=== PATIENT | female | born 1975 | race Caucasian/White ===

== ENCOUNTER 2017-05-15 11:46 | Emergency (ER) | payer OTHER ==
[~2017-05-15] VITALS: Ht 165.1 cm; Wt 88.0 kg
[~2017-05-15 11:46] MED LIST: ATV/1 PO; METO-217 PO; NXM/40 PO; SERT-234 PO
[2017-05-15 11:49] VITALS: TEMP 36.8; Ht 165.1 cm; Wt 88.0 kg
[2017-05-15] MEDS ORDERED: KETOROLAC TROMETHAMINE 60 MG/2 ML VIAL IM STA (12:10)
[2017-05-15] MEDS ORDERED: BACITRACIN OINT 15 GM TUBE ONE (13:16)
--- NOTE | 2017-05-15 13:25 | EMERGENCY ROOM VISIT NOTE ---
History First contact with patient: 12:06 Chief Complaint: BURN (MINOR) Stated Complaint: POSSIBLE BROKEN RIGHT HAND History of Present Illness The patient is a 41 year old female who presents to the Emergency Room with complaints of "burned hand ". The patient states that earlier today around 10: 30 AM she was at home, and went to reach out with her right hand to the coal stove door which was hot. She burned the palmar aspect of her right hand noting that this is her dominant hand. She rates the overall pain is a 10/10 has had nothing thus far for the pain. She believes her tetanus is up-to-date. She notes no decreased range of motion. Sensation intact. Review of Systems A complete 6-point Review of Systems was discussed with the patient, with pertinent positives and negatives listed in the History of Present Illness. All remaining Review of Systems questions can be considered negative unless otherwise specified. Past Medical/Surgical History Medical Problems: (1) Ankle pain (2) Anxiety (3) Arrhythmia (4) Chest pain (5) Depression (6) GERD (gastroesophageal reflux disease) (7) History of H pylori ulcer (8) Iron deficiency anemia (9) Palpitations (10) Rapid palpitations (11) V-tach Surgical Problems: (1) H/O colonoscopy (2) S/P D&C (status post dilation and curettage) (3) S/p EGD (4) S/P tubal ligation Family History Cardiac disorder GRANDFATHER FH: cancer FATHER (melanoma) FH: rheumatoid arthritis GRANDMOTHER Renal artery stenosis MOTHER Social History Smoking Status: Never Smoker Alcohol Use: none Occupation Status: employed Current/Historical Medications Scheduled Esomeprazole Magnesium (Nexium), 40 MG PO DAILY Lorazepam (Ativan), 1 MG PO DAILY Metoprolol Succinate (Toprol Xl), 50 MG PO DAILY Sertraline (Zoloft), 100 MG PO DAILY Physical Exam Vital Signs Date Time Temp Pulse Resp B/P (MAP) Pulse Ox O2 Delivery O2 Flow Rate FiO2 05/15/17 14:01 76 16 118/80 98 05/15/17 11:49 36.8 85 16 122/75 95 Room Air Physical Exam VITAL SIGNS - Vital signs and nursing notes were reviewed. Stable. GENERAL - 41-year-old female appearing her stated age who is in no acute distress. Communicates well with provider and answers questions appropriately. SKIN -there is erythema to the distal and lateral aspect of the patient's right palm. This erythema then has a centralized 3 cm in diameter, slightly white and bullous-like region with skin separation. No evidence of dermis penetration , or nerve compromise. Overall the integument is intact without bleeding. EXTREMITIES - No clubbing or peripheral cyanosis. No pretibial edema present. Full range of motion of the patient's right hand. She is neurovascularly intact in this region. Superficial second and first degree burn noted. +5/5 strength noted in UE/LE bilaterally. Medical Decision & Procedures Medications Administered Medications (Trade) Dose Ordered Sig/Alvina Route Start Time Stop Time Status Last Admin Dose Admin Ketorolac Tromethamine (Toradol Inj) 60 mg NOW STAT IM 05/15/17 12:10 05/15/17 12:11 DC 05/15/17 12:20 60 MG Medical Decision Patient was seen and evaluated as above in room D6. Review was performed of nursing notes and vital signs. After obtaining a thorough history and physical examination it was evident the patient was experiencing a first and superficial second-degree burn of the patient's right lateral distal palm. It is only partial-thickness and there is no evidence of deep involvement. This was cleansed with a sterile saline gauze, dried, and then bacitracin and Xeroform dressing was applied. Patient was provided IM Toradol for pain. She notes numerous allergies to pain medication therefore this was chosen. I did discuss with her outpatient p.o. pain medication but unfortunately due to her morphine allergy providing anaphylaxis she notes that she will use ibuprofen. I believe this is reasonable. She is to follow with her family doctor regarding her burn here today and is to either return here in 24-48 hours for recheck or her family doctor's office. Extensive discussion was had regarding management. The patient was educated upon management, had questions answered prior to discharge, and was discharged home in good condition. Case was discussed with the attending physician. In the evaluation and treatment of this patient the following differential diagnoses were entertained: First-degree, second-degree, third-degree burn, cellulitis, fracture, dislocation, among others. Impression Primary Impression: Burn injury Departure Information Dispostion Home / Self-Care Condition GOOD Referrals Carter Sena D.O. (PCP) Patient Instructions My [facility] Additional Instructions You have been treated in the Emergency Department today for a burn on your right hand. You have been given bacitracin ointment. This is an antibiotic ointment that will help to prevent the development of an infection at the site of your burn. After you have cleaned the burn site with soap and water and dried the area thoroughly, you should apply a layer of the ointment to the site of the burn with clean gauze or a clean tongue depressor. You should apply a dressing over the site of the burn to keep it clean from contamination. It is recommended to clean the hand, apply the antibiotic ointment, then applied a yellow gauze, and the white gauze, and then wrap the hand. Do this once daily for at least 5-7 days per Look for signs of infection of the wound including: increased pain, swelling, foul discharge, streaking, or increased temperature. If any of these are noticed you should return to the Emergency Department for further assessment and treatment. For pain control, you can use the following [id number] medicines: - Regular strength (325mg/tab) Tylenol (acetaminophen) 2 tabs every 4-6 hours as needed. Do not exceed 12 tablets in a 24 hour period. Avoid taking more than 3 grams (3000 mg) of Tylenol per day. This includes any other sources of acetaminophen you may take on a regular basis. - Regular strength (200 mg/tab) Advil (ibuprofen) 1-2 tabs every 4-6 hours as needed. Do not exceed a dose of 3200 mg per day. You should return to the Emergency Department in 2 days for a recheck of your burn or your family doctor. Please call the family doctor first thing tomorrow morning to schedule follow-up. This is essential to ensure proper wound healing. Return to the emergency department if your symptoms worsen despite treatment course outlined above.
[2017-05-15 14:01] VITALS: BP 118/80; PULSE 76; O2SAT 98
== END 2017-05-15 14:01 | disposition home or self-care (01) ==
LOC: C.EDB 11:47 → C.EDD 14:01
DX: T23.051A Burn of unspecified degree of right palm, initial encounter (principal); X16.XXXA Contact with hot heating appliances, radiators and pipes, initial encounter; Z79.899 Other long term (current) drug therapy; F41.9 Anxiety disorder, unspecified

== ENCOUNTER 2017-05-17 11:47 | Emergency (ER) | payer OTHER ==
[~2017-05-17] VITALS: Ht 165.1 cm; Wt 88.5 kg
[2017-05-17 11:49] VITALS: TEMP 36.6; Ht 165.1 cm; Wt 88.5 kg
[2017-05-17 12:36] VITALS: BP 118/77; PULSE 78; O2SAT 99
--- NOTE | 2017-05-18 06:27 | EMERGENCY ROOM VISIT NOTE ---
ED Visit Note First contact with patient: 12:06 CHIEF COMPLAINT: Thermal burn recheck. HISTORY OF PRESENT ILLNESS: Ms. Melgoza is a 41-year-old white female who ambulates into the ED requesting a wound recheck for a thermal burn she sustained to the right hand. Historically patient reports 2 days ago she accidentally burned her hand on a coal stove at home. She continues to have pain in the area of the burn but also in the webspace between the thumb and index finger on the right hand. She rates this discomfort 5/10. Her pain worsens with abduction of the thumb and palpation. She does feel like the burn is healing well and she has not seen any signs of infection. PHYSICAL EXAM: Vital Signs: Date Time Temp Pulse Resp B/P (MAP) Pulse Ox O2 Delivery O2 Flow Rate FiO2 05/17/17 12:36 78 18 118/77 99 05/17/17 11:49 36.6 86 20 112/76 97 Room Air General: 41-year-old white female in mild distress, nontoxic-appearing, afebrile and hemodynamically stable. Right Hand: Shows a blister formation from her thermal burn over the palmar aspect of the hand in the area of the second MCP joint. There are no signs of infection in this area. There is mild erythema in the webspace between the thumb and index finger without any blister formation. This is mildly tender to palpation I am once again there are no signs of infection. Throughout the hand the skin was warm and pink and capillary refill is brisk. She is able to distinguish light sensations to all dermatomes. She had also had full range of motion in flexion and extension of the first and second MCP joints and flexion and extension of the interphalangeal joints. ED COURSE: Patient is assessed as noted above. Patient's medication list was reviewed. Patient was offered pain medication and refused. A clean dressing was placed on the patient's wound with Bactrim. Patient was educated about today's findings and instructed on her treatment plan ; she verbalized understanding and agreement with this plan. DISPOSITION: Patient discharged home in stable condition. CLINICAL IMPRESSION: Burn recheck. PLAN: Comfort measures, wound care and signs of infection were discussed with the patient. Patient was encouraged to follow-up with PCP or return to the ED for any signs of infection or any new/concerning symptoms.
== END 2017-05-17 12:37 | disposition home or self-care (01) ==
LOC: C.EDB 11:49 → C.EDD 12:37
DX: Z09 Encounter for follow-up examination after completed treatment for conditions other than malignant neoplasm (principal); T23.0 Burn of unspecified degree of wrist and hand; X16.XXXD Contact with hot heating appliances, radiators and pipes, subsequent encounter

== ENCOUNTER 2019-12-07 02:29 | Inpatient (IN) ==
[2019-12-07] MEDS ORDERED: fentaNYL citrate 100 MCG/2 ML VIAL IV STA ×2 (02:41→04:12)
[2019-12-07] MEDS ORDERED: SODIUM CHLORIDE 0.9% 1000ML 1,000 ML IV ONE (02:41)
[2019-12-07] MEDS ORDERED: ONDANSETRON INJ 2 MG/ML 2 ML VIAL IV STA (02:41)
--- NOTE | 2019-12-07 02:45 | Emergency Department Note ---
History of Present Illness General Chief complaint: Abdominal Pain Stated complaint: GALLSTONES, ABD PAIN Time Seen by Provider: 12/07/19 02:36 History of Present Illness Maximum Pain Intensity: 10 This 44-year-old presents to the ER complaining of right upper quadrant pain Location: Right upper quadrant Quality: Painful Severity: Moderate Duration: 2 days Timing: Started 2 days ago Context: Patient was concerned and came in Modifying factors: better with nothing; worse with activity Patient had outpatient testing to the [employer] system. She does not have the results. She was seen at [facility] earlier this week and was told she has issues with her gallbladder. Patient denies chest pain, dyspnea, fevers, flulike illness. Patient had stuffed peppers for dinner. Home Medications Home Medications Medication Instructions Recorded Confirmed Type diphenhydramine HCl 50 mg PO TID PRN #30 cap 06/27/19 12/07/19 Rx hydrocortisone [Cortizone-10] 1 appln TOP BID PRN #28 gm 06/27/19 12/07/19 Rx lorazepam 1 mg PO DAILY 06/27/19 12/07/19 History metoprolol succinate 50 mg PO DAILY 06/27/19 12/07/19 History sertraline 100 mg PO DAILY 06/27/19 12/07/19 History pantoprazole 40 mg PO DAILY 12/07/19 12/07/19 History Allergies Allergy/AdvReac Type Severity Reaction Status Date / Time morphine Allergy Severe ANAPHYLAXIS Verified 12/07/19 03:02 shellfish derived Allergy Severe ANAPHYLAXIS Verified 12/07/19 03:02 nitroglycerin AdvReac Mild HEADACHE Verified 12/07/19 03:02 Fish Allergy Severe ALL SEAFOOD Uncoded 12/07/19 03:02 Unclassified Drugs Allergy Mild EKG Uncoded 12/07/19 03:02 ELECTRODES - RASH Past Med/Surg History Medical History (Updated 12/07/19 @ 04:23 by Dee Clifford PA-C) GERD (gastroesophageal reflux disease) Iron deficiency anemia Surgical History H/O colonoscopy "09/16/14- normal" S/P D&C (status post dilation and curettage) S/P tubal ligation Social History Smoking Status: Never smoker Preferred Language: Guatemalan Feels Safe at Home: Yes Review of Systems A total of 10 systems reviewed and were otherwise negative Physical Exam Vital Signs Vital Signs - 24 hr 12/07/19 02:32 12/07/19 02:55 12/07/19 03:04 Temperature 36.5 C Temperature Source Oral Pulse Rate 84 Pulse Rate [Apical] 83 Respiratory Rate 18 18 Respiratory Depth Normal Blood Pressure 130/88 Blood Pressure [Left Arm] 118/80 Blood Pressure Mean 102 Blood Pressure Mean [Left Arm] 92 Pulse Oximetry 100 98 95 Oxygen Delivery Method Room Air Room Air Room Air Sepsis Recent Fever Within 48 Hours No Sepsis New/Unexplained Change in Mental Status N/A Sepsis Action Taken by Nursing No Action Required 12/07/19 04:00 Temperature Temperature Source Pulse Rate Pulse Rate [Apical] 89 Respiratory Rate 13 Respiratory Depth Normal Blood Pressure Blood Pressure [Left Arm] 114/72 Blood Pressure Mean Blood Pressure Mean [Left Arm] 86 Pulse Oximetry 99 Oxygen Delivery Method Room Air Sepsis Recent Fever Within 48 Hours Sepsis New/Unexplained Change in Mental Status Sepsis Action Taken by Nursing VITALS: Vitals are noted on the nurse's note and reviewed by myself. Vital signs stable. GENERAL: Pleasant female who appears in pain, in no acute distress, nondiaphoretic, well-developed well-nourished. SKIN: Capillary reflex less than 2 seconds. HEENT: Normocephalic. PERRLA. EOMI. Nares patent. Mucous membranes moist. Neck is supple without nuchal rigidity. HEART: Regular rate and rhythm without murmurs gallops or rubs. LUNGS: Clear to auscultation bilaterally without wheezes, rales or rhonchi. No retractions or accessory muscle use. ABDOMEN: Positive bowel sounds x 4. Normal tympanic percussion. Soft, tender to palpation right upper quadrant, without masses or organomegaly. No guarding or rebound tenderness. No CVA tenderness MUSCULOSKELETAL: No gross musculoskeletal defects. NEURO: Patient was alert and oriented to person place and time. No focal neurological deficits. Course Administered Medications Discontinued Medications Fentanyl Citrate (Fentanyl Citrate 100 Mcg/2 Ml Vial) 75 mcg IV NOW STA Stop: 12/07/19 02:42 Last Admin: 12/07/19 02:52 Dose: 75 mcg Documented by: [id number] Fentanyl Citrate (Fentanyl Citrate 100 Mcg/2 Ml Vial) 75 mcg IV NOW STA Stop: 12/07/19 04:13 Last Admin: 12/07/19 04:18 Dose: 75 mcg Documented by: [id number] Sodium Chloride (Nss 1000ml) 1,000 mls @ 999 mls/hr IV .Q1H1M ONE Stop: 12/07/19 03:41 Last Infusion: 12/07/19 04:00 Dose: 0 mls/hr Documented by: [id number] Admin: 12/07/19 02:51 Dose: 999 mls/hr Documented by: [id number] Ondansetron HCl (Ondansetron Inj 2 Mg/Ml 2 Ml Vial) 4 mg IV NOW STA Stop: 12/07/19 02:42 Last Admin: 12/07/19 02:51 Dose: 4 mg Documented by: [id number] Medical Decision Making Medical Records Attestation: I reviewed the patient's medical records. Home Medications Current Medication List: was personally reviewed by me Laboratory Data Attestation: I reviewed the patient's lab results. Result diagrams: 12/07/19 02:55 12/07/19 02:55 Lab Results 12/07/19 12/07/19 12/07/19 Range/Units 02:55 02:55 02:55 WBC 6.17 (4.8-10.8) K/uL RBC 4.11 L (4.2-5.4) M/uL Hgb 10.4 L (12.0-16.0) g/dL Hct 32.7 L (37-47) % MCV 79.6 L (80-100) fL MCH 25.3 (25-34) pg MCHC 31.8 L (32-36) g/dL RDW Std Deviation 43.7 (36.4-46.3) fL RDW Coeff of Pina 15.0 H (11.5-14.5) % Plt Count 193 (130-400) K/uL MPV 12.1 H (7.4-10.4) fL Immature Gran % (Auto) 0.3 % Neut % (Auto) 61.8 % Lymph % (Auto) 28.0 % [place] % (Auto) 7.8 % Eos % (Auto) 1.9 % Baso % (Auto) 0.2 % Neut # (Auto) 3.81 (1.4-6.5) K/uL Lymph # (Auto) 1.73 (1.2-3.4) K/uL [place] # (Auto) 0.48 (0.11-0.59) K/uL Eos # (Auto) 0.12 (0-0.5) K/uL Baso # (Auto) 0.01 (0-0.2) K/uL Immature Gran # (Auto) 0.02 (0.00-0.02) K/uL Sodium 137 (136-145) mmol/L Potassium 4.0 (3.5-5.1) mmol/L Chloride 107 (98-107) mmol/L Carbon Dioxide 27 (21-32) mmol/L Anion Gap 3.0 (3-11) BUN 15 (7-18) mg/dl Creatinine 0.84 (0.6-1.2) mg/dl Est Cr Clr Drug Dosing 92.1 ml/min Est GFR ( Amer) 97.3 Est GFR (Non-Af Amer) 83.9 BUN/Creatinine Ratio 17.4 (10-20) Glucose 92 (70-99) mg/dl Calcium 8.9 (8.5-10.1) mg/dl Total Bilirubin 0.2 (0.2-1) mg/dl AST 37 (15-37) U/L ALT 49 (12-78) U/L Alkaline Phosphatase 100 (45-117) U/L Total Protein 7.5 (6.4-8.2) gm/dl Albumin 3.5 (3.4-5.0) gm/dl Globulin 4.0 (2.5-4.0) gm/dl Albumin/Globulin Ratio 0.9 (0.9-2) Lipase 369 (73-393) U/L HCG, Qual Negative (Negative) Urine Color Urine Appearance (Clear) Urine pH (4.5-7.5) Ur Specific [place] (1.000-1.030) Urine Protein (Negative) Urine Glucose (UA) (Negative) Urine Ketones (Negative) Urine Blood (Negative) Urine Nitrite (Negative) Urine Bilirubin (Negative) Urine Urobilinogen (Negative) Ur Leukocyte Esterase (Negative) 12/07/19 Range/Units 04:05 WBC (4.8-10.8) K/uL RBC (4.2-5.4) M/uL Hgb (12.0-16.0) g/dL Hct (37-47) % MCV (80-100) fL MCH (25-34) pg MCHC (32-36) g/dL RDW Std Deviation (36.4-46.3) fL RDW Coeff of Pina (11.5-14.5) % Plt Count (130-400) K/uL MPV (7.4-10.4) fL Immature Gran % (Auto) % Neut % (Auto) % Lymph % (Auto) % [place] % (Auto) % Eos % (Auto) % Baso % (Auto) % Neut # (Auto) (1.4-6.5) K/uL Lymph # (Auto) (1.2-3.4) K/uL [place] # (Auto) (0.11-0.59) K/uL Eos # (Auto) (0-0.5) K/uL Baso # (Auto) (0-0.2) K/uL Immature Gran # (Auto) (0.00-0.02) K/uL Sodium (136-145) mmol/L Potassium (3.5-5.1) mmol/L Chloride (98-107) mmol/L Carbon Dioxide (21-32) mmol/L Anion Gap (3-11) BUN (7-18) mg/dl Creatinine (0.6-1.2) mg/dl Est Cr Clr Drug Dosing ml/min Est GFR ( Amer) Est GFR (Non-Af Amer) BUN/Creatinine Ratio (10-20) Glucose (70-99) mg/dl Calcium (8.5-10.1) mg/dl Total Bilirubin (0.2-1) mg/dl AST (15-37) U/L ALT (12-78) U/L Alkaline Phosphatase (45-117) U/L Total Protein (6.4-8.2) gm/dl Albumin (3.4-5.0) gm/dl Globulin (2.5-4.0) gm/dl Albumin/Globulin Ratio (0.9-2) Lipase (73-393) U/L HCG, Qual (Negative) Urine Color Yellow Urine Appearance Clear (Clear) Urine pH 6.0 (4.5-7.5) Ur Specific [place] 1.009 (1.000-1.030) Urine Protein Negative (Negative) Urine Glucose (UA) Negative (Negative) Urine Ketones Negative (Negative) Urine Blood Negative (Negative) Urine Nitrite Negative (Negative) Urine Bilirubin Negative (Negative) Urine Urobilinogen Negative (Negative) Ur Leukocyte Esterase Negative (Negative) Imaging Data Attestation: I personally reviewed and interpreted this imaging study as follows: MDM Narrative Prior records/ancillary studies reviewed. Triage Nursing notes reviewed. Additional history obtained from family. The patient's history was concerning for abdominal pain. Differential diagnosis: Etiologies such as appendicitis, diverticulitis, PUD, biliary pathology, UTI, pancreatitis, obstruction, mesenteric ischemia, aortic pathology, infections, inflammatory bowel disease, renal colic, as well as others were entertained. Physical examination findings: As above. ER treatment provided: An order was placed for continuous cardiac monitoring. The monitor shows a rate of 60-100 with a sinus rhythm. Fentanyl, Zofran, IV fluids On reassessment the patient felt better. Diagnostics interpreted by me: The labs revealed stable anemia per chart review. Negative hCG. Normal LFTs Imaging studies: US GALLBLADDER: Exam limited due to gas artifact in the bowel. Partial obscuration of the tail of the pancreas, remainder of the visualized pancreas within normal limits. Liver measures 18 cm with a diffuse fatty infiltration otherwise unremarkable. Gallbladder is normally distended with multiple tiny stones. Gallbladder wall measures 2 mm. Negative Myers sign. Normal common bile duct measuring 4 mm. Normal right kidney measuring 12.2 cm. No hydronephrosis. No free fluid. Radiologist: Jessica Westbrook MD I did obtain the outpatient records from [facility] and patient in abdominal MRI that showed a right ovarian cyst. Consultation: A consultation was placed with the hospitalist, Dr. Alexander. The case was discussed and diagnostics were reviewed. The patient was evaluated in the ER for further treatment. Exam and history seem consistent with biliary colic with intractable pain. Patient received a few rounds of pain meds. Medicine was consulted. She will be evaluated for possible admission. By the evaluation outlined above emergent etiologies such as appendicitis, diverticulitis, pancreatitis, obstruction, mesenteric ischemia, aortic pathology, inflammatory bowel disease, renal colic, as well as others were deemed relatively unlikely. The pt informed about the findings as listed above. All questions were answered and pleased with the treatment. The chart was completed utilizing [employer] voice recognition software. Grammatical errors, random word insertions, pronoun errors, and incomplete sentences are an occassional consequence of this system due to software limitations, ambient noise, and hardware issues. Any formal questions or concerns about the content, text, or information contained within the body of this dictation should be directly addressed to the physician clinical education assistant for clarification. Impression & Plan Biliary colic, Intractable abdominal pain Discharge Plan Visit Data Chief Complaint: Abdominal Pain Stated Complaint: GALLSTONES, ABD PAIN ED Provider: Monique Sheffield ED Midlevel Provider: Dee Clifford Discharge Problem: Biliary colic, Intractable abdominal pain Patient Disposition: Admitted As Inpatient Condition: Good Forms Stand Alone Forms: Total Attorneys Prescriptions Prescriptions: No Action metoprolol succinate 50 mg tablet extended release 24 hr 50 mg PO DAILY RF: 0 sertraline 100 mg tablet 100 mg PO DAILY RF: 0 lorazepam 1 mg tablet 1 mg PO DAILY RF: 0 diphenhydramine HCl 50 mg capsule 50 mg PO TID PRN (Reason: itching) Qty: 30 RF: 0 hydrocortisone [Cortizone-10] 1 % cream 1 appln TOP BID PRN (Reason: itching) Qty: 28 RF: 2 pantoprazole 40 mg tablet,delayed release (DR/EC) 40 mg PO DAILY RF: 0 Referrals Referrals: Carter Sena DO [Primary Care Provider] -
[2019-12-07 03:03] LABS: Basophils # (auto) 0.01 K/uL (0-0.2); Basophils % (auto) 0.2 %; Eosinophils # (auto) 0.12 K/uL (0-0.5); Eosinophils % (auto) 1.9 %; Hematocrit (blood only) 32.7 % (37-47); Hemoglobin 10.4 g/dL (12.0-16.0); Immature Granulocytes # (auto) 0.02 K/uL (0.00-0.02); Immature Granulocytes % (auto) 0.3 %; Lymphocytes # (auto) 1.73 K/uL (1.2-3.4); Mean Corpuscular Hemoglobin 25.3 pg (25-34); Mean Corpuscular Hgb Conc 31.8 g/dL (32-36); Mean Corpuscular Volume 79.6 fL (80-100); Mean Platelet Volume 12.1 fL (7.4-10.4); Monocytes # (auto) 0.48 K/uL (0.11-0.59); Monocytes % (auto) 7.8 %; Neutrophils # (auto) 3.81 K/uL (1.4-6.5); Neutrophils % (auto) 61.8 %; Platelet Count 193 K/uL (130-400); RDW Standard Deviation 43.7 fL (36.4-46.3); Red Blood Count 4.11 M/uL (4.2-5.4); White Blood Count 6.17 K/uL (4.8-10.8)
[2019-12-07 03:20] LABS: Albumin Level 3.5 gm/dl (3.4-5.0); BUN Creatinine Ratio 17.4 (10-20); Calcium 8.9 mg/dl (8.5-10.1); Creatinine Clr Calc Pharmacy 92.1 ml/min; Est GFR (African American) 97.3; Est GFR (Non-African American) 83.9
[2019-12-07 03:23] LABS: Albumin Globulin Ratio 0.9 (0.9-2); Bilirubin,Total 0.2 mg/dl (0.2-1); Total Protein 7.5 gm/dl (6.4-8.2)
[2019-12-07 03:34] LABS: Pregnancy Test, Serum Negative (Negative)
[2019-12-07 04:20] LABS: Appearance Urine Clear (Clear); Bilirubin Urine Negative (Negative); Blood Urine Negative (Negative); Color Urine Yellow; Glucose Urine UA Negative (Negative); Ketones Urine Negative (Negative); Leukocyte Esterase Urine Negative (Negative); Nitrite Urine Negative (Negative); Protein Urine Negative (Negative); Specific Gravity Urine 1.009 (1.000-1.030); Urobilinogen Urine Negative (Negative)
[2019-12-07] MEDS ORDERED: HYDROmorphone INJ 0.5 MG/0.5 ML SYR ONE (05:33)
[2019-12-07] MEDS ORDERED: ACETAMINOPHEN 325 MG TAB PO PRN ×2 (06:09→18:32)
[2019-12-07] MEDS ORDERED: D5W AND NSS 1,000 ML IV SCH (06:09)
[2019-12-07] MEDS ORDERED: HYDROmorphone INJ 0.5 MG/0.5 ML SYR IV PRN (06:09)
[2019-12-07] MEDS ORDERED: diphenhydrAMINE Capsule 25 MG CAP PO PRN (06:15)
[2019-12-07] MEDS ORDERED: HYDROCORTISONE 1% CRM 30 GM TUBE EXT PRN (06:16)
--- NOTE | 2019-12-07 06:31 | History and Physical Report ---
DATE OF ADMISSION: 12/07/2019 CHIEF COMPLAINT: Abdominal pain. HISTORY OF PRESENT ILLNESS: This is a 44-year-old female with past medical history significant for GERD, history of iron deficiency anemia, anxiety, depression, history of tachyarrhythmia, left ovarian cyst, who presents with abdominal pain. The patient states the abdominal pain has been going on for 1 week on and off. She was in [facility] on Tuesday and she got a CAT scan done and it showed gallstones and she saw her PCP and was referred to GI. Was seen by GI and ordered MRI scan yesterday. She does not know the results, but as per the Epic, results show nonvisualization of the gallbladder likely contracted, mild biliary ductal dilatation, which gradually tapers distally, no choledocholithiasis. But the patient says pain is not getting better, she now has right upper quadrant pain not associated with any food intake, it has become constant now associated with some nausea, which prompted her to come to the ER. Here a gallbladder ultrasound was done which showed some small gallstones. Even after pain medication, still has significant pain, so we are consulted for admission and further management. The patient's hemodynamics are stable. She is having a headache constant. Denies any blurred vision. No earache, no runny nose, no sore throat, no loss of sense of smell or taste. No cough, no shortness of breath, no chest pain. She is somewhat constipated. No dizziness. No blood in stool or black stool. Normal bladder movements. No hematuria. No burning micturition. No rash. ALLERGIES: MORPHINE, SHELLFISH, NITROGLYCERIN, ALL SEAFOOD. PAST MEDICAL HISTORY: As mentioned above. PAST SURGICAL HISTORY: Colonoscopy, EGDs, ligation of the oviducts, D and C. MEDICATIONS: As per the patient, the patient is on Benadryl 50 mg p.o. t.i.d. p.r.n., hydrocortisone application topically b.i.d. p.r.n., lorazepam 1 mg p.o. daily, metoprolol succinate 50 mg p.o. daily, Protonix 40 mg p.o. daily, Zoloft 100 mg p.o. daily. FAMILY HISTORY: Significant for father had melanoma, paternal grandfather had heart disorder, mother had renal history, maternal grandmother had rheumatoid arthritis. SOCIAL HISTORY: . No smoking, no alcohol, no drug use. REVIEW OF SYSTEMS: As per HPI. Rest of the review of systems negative. PHYSICAL EXAMINATION: GENERAL: The patient is of moderate build, not in acute distress. VITAL SIGNS: Temperature 36.5, pulse 89, respiratory rate 18, blood pressure 114/72, oxygen 99% on room air. HEENT: Pupils are equal, round, and reactive to light. Oral mucosa moist. NECK: No JVD, no neck masses. CARDIOVASCULAR: S1, S2 heard, regular rate and rhythm, no murmur, no gallop. RESPIRATORY SYSTEM: Normal AP diameter. No accessory muscle use. No wheezing, no crackles. ABDOMEN: Soft, bowel sounds present. Right upper quadrant tenderness present. Mild guarding, no rigidity. No distention. CENTRAL NERVOUS SYSTEM: Cranial nerves II-XII grossly intact. Nonfocal. EXTREMITIES: No edema, no erythema. LABORATORY DATA: WBC 6.1, hemoglobin 10.4, hematocrit 32.7, MCV 79.6, platelets 193. Sodium 137, potassium 4, chloride 107, bicarbonate 27, BUN 15, creatinine 0.8, serum glucose 92, calcium 8.9, total bilirubin 0.2, AST 37, ALT 49, alkaline phosphatase 100. Lipase 369. HCG qualitative negative. Urinalysis negative. IMAGING DATA: Gallbladder ultrasound, preliminary report shows gallbladder is normally distended with multiple tiny stones. Gallbladder wall measures 2 mm. ASSESSMENT AND PLAN: This is a 44-year-old female who presents with ongoing right upper quadrant abdominal pain. 1. Right upper quadrant abdominal pain. Ultrasound showed gall stones. She recently had MRI scan as outpatient by GI, which was done yesterday which shows nonvisualization of the gallbladder, likely contracted, mild biliary ductal dilatation, which gradually tapers distally. No choledocholithiasis. Presents with ongoing pain could be biliary colic. We will consult GI as she was recently seen by GI. We will also consult surgery and also will get a HIDA scan. We will keep her n.p.o., IV fluids, IV Dilaudid p.r.n. Continue her home Protonix p.o. and monitor in the medical floor. 2. History of tachyarrhythmias, on metoprolol, which she will continue. 3. History of anxiety and depression. Continue Zoloft and Ativan. 4. History of iron deficiency anemia. Hemoglobin is 10.6, seems to be same. Needs followup with the PCP. We will order stool for Hemoccult. 5. Deep venous thrombosis prophylaxis, sequential compression devices. DISPOSITION: Closely monitor in the medical floor. Expect to discharge home and follow with family doctor. Level 1 full code. MTDD
[2019-12-07] MEDS ORDERED: KETOROLAC 30 MG/ML VIAL IV ONE (06:55)
--- NOTE | 2019-12-07 07:08 | Ultrasound Report ---
ABDOMINAL ULTRASOUND, RIGHT UPPER QUADRANT HISTORY: Right upper quadrant pain.. COMPARISON: Abdominal ultrasound 11/11/2014. FINDINGS: Pancreas: The pancreatic tail is obscured by overlying bowel gas. The remaining portions of the pancr eas are within normal limits. Liver: The liver is echogenic consistent with fatty change. 18 cm in length. Gallbladder: No gallbladder wall thickening. A few tiny gallstones. Negative sonographic Myers sign. CBD: 4 mm. Right kidney: No hydronephrosis. IMPRESSION: 1. A few tiny gallstones. No gallbladder wall thickening. 2. Hepatic steatosis. ACT 112: Negative or not required by law. Electronically signed by: Jaspal Benoit M.D. 12/07/2019 7:07 AM
[2019-12-07] MEDS: LACTATED RINGER'S 1,000 ML IV SCH ×2 (09:12→18:56)
[2019-12-07] MEDS: LORazepam 1 MG TAB PO SCH (09:14)
[2019-12-07] MEDS: METOPROLOL SUCC 50MG EXT REL TAB PO SCH (09:14)
[2019-12-07] MEDS: PANTOprazole 40 MG TAB PO SCH (09:14)
[2019-12-07] MEDS: SERTRALINE HCL 100 MG TABLET PO SCH (09:15)
--- NOTE | 2019-12-07 09:15 | Hospitalist Progress Note ---
Date of Service December 07, 2019 Assessment & Plan (1) Gallstone: with Right Upper quadrant pain -As per History and Physical "This is a 44-year-old female with past medical history significant for GERD, history of iron deficiency anemia, anxiety, depression, history of tachyarrhythmia, left ovarian cyst, who presents with abdominal pain. The patient states the abdominal pain has been going on for 1 week on and off. She was in [facility] on Tuesday and she got a CAT scan done and it showed gallstones and she saw her PCP and was referred to GI. Was seen by GI and ordered MRI scan yesterday. She does not know the results, but as per the Epic, results show nonvisualization of the gallbladder likely contracted, mild biliary ductal dilatation, which gradually tapers distally, no choledocholithiasis. But the patient says pain is not getting better, she now has right upper quadrant pain not associated with any food intake, it has become constant now associated with some nausea, which prompted her to come to the ER. Here a gallbladder ultrasound was done which showed some small gallstones. -review of lab markers are not suggestive of choledocholithiasis but given continued symptoms, patient to get HIDA scan. At discretion of GI team whether ERCP will be performed on this hospital stay -GI service ordered pre-operative COVID 19 screening and upper endoscopy at this time -General surgery consult also requested by admitting hospitalist physician -patient currently NPO and on IV fluids, prn analgesics, prn anti-emetics, continue home dose protonics History of tachyarrhythmias -on metoprolol, continue. Anxiety and depression -Continue Zoloft and Ativan. History of iron deficiency anemia -Hemoglobin on presentation 10.6 appears baseline Deep venous thrombosis prophylaxis, sequential compression devices. Admission and Anticipated Discharge Date Admission Date: December 07, 2019 Subjective Patient not in acute distress. Has right quadrant tenderness the increases with palpation of the area. no shortness of breath. able to sit up for auscultation. no wheezing. on room air. IV fluids are running. patient denies chest pain or palpitations. no dizziness. no headache. denies other acute symptoms Review of Systems Review of Systems: All systems reviewed & are unremarkable except as noted in Subjective Physical Exam Constitutional: cooperative Eyes: PERRL, conjunctivae normal, anicteric sclerae EOM intact bilaterally ENMT: external ear and nose normal, oropharynx normal Neck: normal visual inspection Respiratory: normal respiratory effort, lungs clear to auscultation Cardiovascular: Rate/Rhythm: + bradycardic Gastrointestinal (Abdomen): Inspection/Auscultation: normal bowel sounds Percussion/Palpation: + abdomen tender (right upper quadrant tenderness) and abdomen soft Musculoskeletal: Head/Neck/Chest: normocephalic and head atraumatic Neurologic: PERRL, EOMI, accommodation nl, no face palsy, no dysarthria CN's II-XI intact bilaterally Psychiatric: A+Ox3, euthymic affect Results & Data Results & Data ([facility]) Vital Signs (Past 12 Hours) Vital Signs Temp Pulse Pulse Pulse Pulse Resp BP 12/07/19 09:06 57 L 12/07/19 06:04 36.7 C 81 16 12/07/19 06:00 36.7 C 81 16 12/07/19 05:30 86 13 102/40 L 12/07/19 04:00 89 13 12/07/19 03:04 83 18 12/07/19 02:55 12/07/19 02:32 36.5 C 84 18 130/88 BP BP Pulse Ox 12/07/19 09:06 106/66 12/07/19 06:04 107/67 97 12/07/19 06:00 107/67 97 12/07/19 05:30 97 12/07/19 04:00 114/72 99 12/07/19 03:04 118/80 95 12/07/19 02:55 98 12/07/19 02:32 100
--- NOTE | 2019-12-07 09:17 | Gastrointestinal Consultation ---
Date of Consultation December 07, 2019 Assessment & Plan (1) Gallstone: (2) Iron deficiency anemia: (3) Intractable abdominal pain: Pt is a 44 yo female w RUQ abd pain, radiating to back not related to eating. She endorses 20lbs weight loss in last 2 months. Previous labs/diagnostic studies showed mildly elevated ALT, and MRCP evidence of mild biliary dilation w distal tapering and gallstones w/o signs of cholecystitis. U/S on admission however showed normal CBD at 4mm. + Excedrin uses for HAs ? PUD vs gastritis - HIDA scheduled for 1p today - Keep NPO - IVF support - Continue Protonix 40mg daily - Plan for EGD/EUS evaluation in OR by Dr. Braga today - Hx of iron deficiency anemia 2/2 menorrhagia. Consider repeating iron profile studies and eventually f/u in outpt setting w PCP or Heme/Onc to continue iron infusions. Should also repeat colonoscopy to r/o sources of LGI bleed/occult lesion Supervising Physician Co-Signing Physician Notes I performed a history and physical examination of the patient today, including specifically on physical exam - soft abdomen. I have discussed the patient's management with the advanced practitioner. Please refer to the nurse practitioner's note for the documented findings and plan of care. EGD/EUS today History of Present Illness Reason for Consultation: Abdominal pain Requesting Physician: Dr. Willard Gonzalez Attending Physician: Dr. Gavi Braga History of Present Illness Pt is a 44 yo female who presented yesterday w c/o RUQ abd pain. She was just seen at GI clinic by CHRISTIAN Izquierdo for this complaint. In last few months she's been having intermittent sharp RUQ abd pain, radiating to back. Pain not related to eating. Denies associated jaundice, fever, chills, n/v, changes in bowel habits. She also reports in 20lbs weight loss in last 2 months. Her ALT was mildly up on outpt labs, lipase normal. Previous diagnostic studies obtained to workup RUQ pain U/S, CT abd/pelvis and most recently MRCP which showed gallstones w/o distension/inflammation. CBD mildly dilated and tapers gradually but w/o obvious choledocholithiasis on MRCP. U/S on admission yesterday however showed CBD normal at 4mm. She has hx of anemia as well suspected due to menorrhagia, and been treated in the past w IV iron infusions. Currently on PO iron supplements daily EGD/Colonoscopy 2017- normal upper exam, + diverticulosis. She did have hx of esophagitis in 2014. + Excedrin uses for migraine HAs, no ETOH, tobacco, marijuana products Maternal grandmother ? rectal ca. Allergies Allergy/AdvReac Type Severity Reaction Status Date / Time morphine Allergy Severe ANAPHYLAXIS Verified 12/07/19 03:02 shellfish derived Allergy Severe ANAPHYLAXIS Verified 12/07/19 03:02 nitroglycerin AdvReac Mild HEADACHE Verified 12/07/19 03:02 Fish Allergy Severe ALL SEAFOOD Uncoded 12/07/19 03:02 Unclassified Drugs Allergy Mild EKG Uncoded 12/07/19 03:02 ELECTRODES - RASH Home Medications Home Medications Medication Instructions Recorded Confirmed Type diphenhydramine HCl 50 mg PO TID PRN #30 cap 06/27/19 12/07/19 Rx hydrocortisone [Cortizone-10] 1 appln TOP BID PRN #28 gm 06/27/19 12/07/19 Rx lorazepam 1 mg PO DAILY 06/27/19 12/07/19 History metoprolol succinate 50 mg PO DAILY 06/27/19 12/07/19 History sertraline 100 mg PO DAILY 06/27/19 12/07/19 History pantoprazole 40 mg PO DAILY 12/07/19 12/07/19 History Patient History Medical History (Updated 12/07/19 @ 09:32 by Norma Hoskins PA-C) GERD (gastroesophageal reflux disease) Iron deficiency anemia Surgical History H/O colonoscopy "09/16/14- normal" S/P D&C (status post dilation and curettage) S/P tubal ligation Social History Smoking Status: Never smoker Hx Alcohol Use: Yes Alcohol type: wine Hx Substance Use: No Preferred Language: Chinese Communication Ability: Effective Beliefs That Will Affect Care: None Current Living Situation: Spouse and Family Other Information That Helps Us Care for You: No Feels Safe at Home: Yes Safety Concerns: Feels Safe At This Time Review of Systems Review of Systems: All systems reviewed & are unremarkable except as noted in HPI & below Physical Exam Constitutional: WD/WN, vitals as above well groomed, cooperative and comfortable Eyes: PERRL, conjunctivae normal, anicteric sclerae ENMT: external ear and nose normal, oropharynx normal Respiratory: normal respiratory effort, lungs clear to auscultation Cardiovascular: RRR, no murmur, no edema Gastrointestinal (Abdomen): Inspection/Auscultation: + hypoactive bowel sounds Percussion/Palpation: + abdomen tender (RUQ ) and abdomen soft Skin: no rashes, warm and dry no jaundice Neurologic: Motor/Sensory: no asterixis Psychiatric: A+Ox3, euthymic affect Lymphatic: no lymphedema Results & Data ([facility]) Vital Signs (Past 12 Hours) Vital Signs Temp Pulse Pulse Pulse Pulse Resp BP 12/07/19 09:06 57 L 12/07/19 06:04 36.7 C 81 16 12/07/19 06:00 36.7 C 81 16 12/07/19 05:30 86 13 102/40 L 12/07/19 04:00 89 13 12/07/19 03:04 83 18 12/07/19 02:55 12/07/19 02:32 36.5 C 84 18 130/88 BP BP Pulse Ox 12/07/19 09:06 106/66 12/07/19 06:04 107/67 97 12/07/19 06:00 107/67 97 12/07/19 05:30 97 12/07/19 04:00 114/72 99 12/07/19 03:04 118/80 95 12/07/19 02:55 98 12/07/19 02:32 100
--- NOTE | 2019-12-07 09:18 | Surgery Consultation ---
Date of Consultation December 07, 2019 Assessment & Plan (1) Gallstones: This is a 44y F with a PMH of anxiety/depression who presents to the [facility] ED on 12/07/19 with complaints of abdominal pain. Patient reports pain has been present over the past 2 weeks and is now constant RUQ pain that can get worse during "flares". She was evaluated by GI as an output and underwent an MRCP that revealed mild biliary ductal dilation which tapers distally. GI is following in house and recommended obtaining an EGD/EUS today. Patient is also scheduled for a HIDA scan this afternoon. Currently patient's WBC and LFTs are normal and there is no evidence of inflammation/cholecystitis on her imaging. We will gather more information with HIDA and EUS, but no plans for surgical intervention from our standpoint today. We will continue to follow along. as above. stopped to see pt who is not in her room/downstairs for GI procedure. will make rec's pending results of egd/eus. History of Present Illness Attending Physician: Willard Gonzalez MD History of Present Illness This is a 44y F with a PMH of anxiety/depression who presents to the [facility] ED on 12/07/19 with complaints of abdominal pain. Patient reports her abdominal pain started about 2 weeks ago, started in the lower abdomen that has now progressed to the RUQ and towards her back. She said she tried to ignore the pain and has taken Ibuprofen for relief. This past Tuesday after work she reports the pain became very severe in the RUQ and developed bad acid reflux. She went to [facility] ER where she was told she had gallstones and they sent her to her PCP and then to GI for further evaluation. She underwent an MRI which supposedly shows non visualization of the gallbladder,likely contracted, with mild biliary ductal dilation which tapers distally. After her MRI yesterday she said around 10pm she had another bout of severe pain and ultimately came to the ER for further evaluation. In the ER patient's WBC 6, patient afebrile, and LFTs unremarkable. She underwent a RUQ US revealing few tiny gallstones without gallbladder wall thickening. Patient reports that her pain has been constant over the past 2 weeks, but she develops these flares of severe pain that she rates >10/10. She states there is no relationship to food as she gave up eating greasy foods. She reported some loose stools yesterday, waves of feeling hot/cold, and + nausea. She denies vomiting, chest pain, shortness of breath, or true fevers. She has no prior abdominal surgical history. Allergies Allergy/AdvReac Type Severity Reaction Status Date / Time morphine Allergy Severe ANAPHYLAXIS Verified 12/07/19 03:02 shellfish derived Allergy Severe ANAPHYLAXIS Verified 12/07/19 03:02 nitroglycerin AdvReac Mild HEADACHE Verified 12/07/19 03:02 Fish Allergy Severe ALL SEAFOOD Uncoded 12/07/19 03:02 Unclassified Drugs Allergy Mild EKG Uncoded 12/07/19 03:02 ELECTRODES - RASH Home Medications Home Medications Medication Instructions Recorded Confirmed Type diphenhydramine HCl 50 mg PO TID PRN #30 cap 06/27/19 12/07/19 Rx hydrocortisone [Cortizone-10] 1 appln TOP BID PRN #28 gm 06/27/19 12/07/19 Rx lorazepam 1 mg PO DAILY 06/27/19 12/07/19 History metoprolol succinate 50 mg PO DAILY 06/27/19 12/07/19 History sertraline 100 mg PO DAILY 06/27/19 12/07/19 History pantoprazole 40 mg PO DAILY 12/07/19 12/07/19 History Patient History Medical History (Updated 12/07/19 @ 09:32 by Norma Hoskins PA-C) GERD (gastroesophageal reflux disease) Iron deficiency anemia Surgical History H/O colonoscopy "09/16/14- normal" S/P D&C (status post dilation and curettage) S/P tubal ligation Social History Smoking Status: Never smoker Hx Alcohol Use: Yes Alcohol type: wine Hx Substance Use: No Preferred Language: Angolan Communication Ability: Effective Beliefs That Will Affect Care: None Current Living Situation: Spouse and Family Other Information That Helps Us Care for You: No Feels Safe at Home: Yes Safety Concerns: Feels Safe At This Time Assistive Devices: None Review of Systems Constitutional: waves of feeling hot/cold Respiratory: no dyspnea Cardiovascular: no chest pain Gastrointestinal: + abdominal pain (RUQ), + heartburn, + nausea and + diarrhea/loose stools; no vomiting Physical Exam Physical Exam: awake/alert Respiratory: normal respiratory effort Gastrointestinal (Abdomen): Inspection/Auscultation: abdomen not distended Percussion/Palpation: + abdomen tender (some ttp to deep palpation in RUQ) and abdomen soft Results & Data ([facility]) Vital Signs (Past 12 Hours) Vital Signs Temp Pulse Pulse Pulse Pulse Resp BP 12/07/19 09:06 57 L 12/07/19 06:04 36.7 C 81 16 12/07/19 06:00 36.7 C 81 16 12/07/19 05:30 86 13 102/40 L 12/07/19 04:00 89 13 12/07/19 03:04 83 18 12/07/19 02:55 12/07/19 02:32 36.5 C 84 18 130/88 BP BP Pulse Ox 12/07/19 09:06 106/66 12/07/19 06:04 107/67 97 12/07/19 06:00 107/67 97 12/07/19 05:30 97 12/07/19 04:00 114/72 99 12/07/19 03:04 118/80 95 12/07/19 02:55 98 12/07/19 02:32 100 PG Care Time/CCT Total # of Minutes Spent Total Time Spent with Patient: Total time spent is greater than 50% in coordination of care (as documented) at patient's floor/unit and/or counseling patient: Coding Level of Care Code 38879 Inpt Consult Level 4 Diagnoses Gallstones K80.20
[2019-12-07] MEDS ORDERED: SODIUM CHLORIDE 0.9% IV STA (13:32)
[2019-12-07] MEDS ORDERED: SINCALIDE IV STA (13:32)
--- NOTE | 2019-12-07 15:08 | Nuclear Medicine Report ---
NUCLEAR HEPATOBILIARY SCAN WITH EJECTION FRACTION IMAGING CLINICAL HISTORY: Right upper quadrant abdominal pain. Cholelithiasis. COMPARISON STUDY: Abdominal ultrasound dated 12/07/2019. TECHNIQUE: Dynamic images of the liver and anterior abdomen were obtained every 5 minutes for a total of 60 minutes following the IV administration of 5.4mCi of technetium 99m Choletec. 1.74 mcg of si ncalide was then injected with additional images acquired every 5 minutes for 45 minutes to calculate the gallbladder ejection fraction. FINDINGS: The hepatobiliary scan shows prompt and homogeneous hepatic uptake. There is visualized act ivity within the intra and extrahepatic biliary tree at 5 minutes, and within the gallbladder at 10 minutes. There is normal biliary to bowel transit, with small bowel visualized by 45 minutes. On the sincalide imaging, the gallbladder ejection fraction was measured at 35%. IMPRESSION: 1. Unremarkable nuclear hepatobiliary scan. There is no scintigraphic evidence of cholecystitis. 2. The gallbladder ejection fraction measured 35% which is low-normal. ACT 112: Negative or not required by law. Electronically signed by: Jaylon Pena M.D. 12/07/2019 3:07 PM
--- NOTE | 2019-12-07 16:20 | History & Physical Bridge Note ---
Date of Service December 07, 2019 History & Physical Bridge Note I have examined the patient, reviewed the History & Physical and in the interval since the performance of the History & Physical I have noted the following changes of clinical significance: no changes noted EGD/EUS, I also consented the patient for ERCP if needed.
--- NOTE | 2019-12-07 16:22 | Anesthesiology Consultation ---
Date of Service December 07, 2019 Covid 19 negative today. Assessment & Plan (1) Encounter for pre-operative examination: Chart Review Chart Review: Acceptable Risk for Surgery and Patient NOT seen in Pre Admission Testing Consults Requested none History Surgery Operation Date: 12/07/19 13:35 Proposed Procedures p Endoscopic Ultrasonography, - Gavi Braga MD s Esophagogastroduodenoscopy - Gavi Braga MD Height/Weight Height: 5 ft 5 in Weight: 87.1 kg Allergies Allergy/AdvReac Type Severity Reaction Status Date / Time morphine Allergy Severe ANAPHYLAXIS Verified 12/07/19 03:02 shellfish derived Allergy Severe ANAPHYLAXIS Verified 12/07/19 03:02 nitroglycerin AdvReac Mild HEADACHE Verified 12/07/19 03:02 Fish Allergy Severe ALL SEAFOOD Uncoded 12/07/19 03:02 Unclassified Drugs Allergy Mild EKG Uncoded 12/07/19 03:02 ELECTRODES - RASH Medications Home Medications Medication Instructions Recorded Confirmed Last Taken diphenhydramine HCl 50 mg PO TID PRN #30 cap 06/27/19 12/07/19 Unknown hydrocortisone [Cortizone-10] 1 appln TOP BID PRN #28 gm 06/27/19 12/07/19 Unknown lorazepam 1 mg PO DAILY 06/27/19 12/07/19 12/06/19 metoprolol succinate 50 mg PO DAILY 06/27/19 12/07/19 12/06/19 sertraline 100 mg PO DAILY 06/27/19 12/07/19 12/06/19 pantoprazole 40 mg PO DAILY 12/07/19 12/07/19 12/06/19 Active Medications Generic Name Dose Route Start Last Admin Trade Name Freq PRN Reason Stop Dose Admin Acetaminophen 650 mg 12/07/19 06:09 12/07/19 09:15 Acetaminophen 325 Mg Tab PO 01/06/20 06:08 650 mg Q4H PRN Administration pain/fever Lactated Ringer's 1,000 mls @ 100 mls/hr 12/07/19 07:45 12/07/19 09:12 Lr IV 01/06/20 07:44 100 mls/hr .Q10H NICK Administration Lorazepam 1 mg 12/07/19 09:00 12/07/19 09:14 Lorazepam 1 Mg Tab PO 01/06/20 08:59 1 mg DAILY NICK Administration Metoprolol Succinate 50 mg 12/07/19 09:00 12/07/19 09:14 Metoprolol Succ 50mg Ext Rel Tab PO 01/06/20 08:59 Not Given DAILY NICK Pantoprazole Sodium 40 mg 12/07/19 09:00 12/07/19 09:14 Pantoprazole 40 Mg Tab PO 01/06/20 08:59 40 mg DAILY NICK Administration Sertraline HCl 100 mg 12/07/19 09:00 12/07/19 09:15 Sertraline Hcl 100 Mg Tablet PO 01/06/20 08:59 100 mg DAILY NICK Administration NPO Date Last Intake of Fluids: 12/06/19 Time Last Intake of Fluids: 17:30 Date Last Intake of Solids: 12/06/19 Time Last Intake of Solids: 17:30 Past Medical History Medical History (Updated 12/07/19 @ 16:22 by Jaspal Cordova MD) GERD (gastroesophageal reflux disease) Iron deficiency anemia Past Surgical History Surgical History H/O colonoscopy "09/16/14- normal" S/P D&C (status post dilation and curettage) S/P tubal ligation Social History Smoking Status: Never smoker Hx Alcohol Use: Yes Alcohol type: wine alcohol intake frequency: holidays/special occasions only Hx Substance Use: No Physical Exam Vital Signs Last Vital Signs Temp 36.7 C 12/07/19 15:46 Pulse 67 12/07/19 15:46 Resp 16 12/07/19 15:46 BP 101/77 12/07/19 15:46 Pulse Ox 100 12/07/19 15:46 Testing Laboratory Results 12/07/19 02:55 12/07/19 02:55 Urine Color Yellow 12/07/19 04:05 Urine Appearance Clear (Clear) 12/07/19 04:05 Urine pH 6.0 (4.5-7.5) 12/07/19 04:05 Ur Specific [place] 1.009 (1.000-1.030) 12/07/19 04:05 Urine Protein Negative (Negative) 12/07/19 04:05 Urine Glucose (UA) Negative (Negative) 12/07/19 04:05 Urine Ketones Negative (Negative) 12/07/19 04:05 Urine Nitrite Negative (Negative) 12/07/19 04:05 Ur Leukocyte Esterase Negative (Negative) 12/07/19 04:05 Electrocardiogram Date: 06/27/19 Findings: + NSR @ (80)
[2019-12-07] MEDS ORDERED: fentaNYL citrate 100 MCG/2 ML VIAL IV PRN (16:23)
[2019-12-07] MEDS ORDERED: ONDANSETRON INJ 2 MG/ML 2 ML VIAL IV PRN (16:23)
[2019-12-07] MEDS ORDERED: LABETALOL HCL IV 5 MG/ML 20ML IV PRN (16:23)
[2019-12-07] MEDS ORDERED: ATROPINE SULFATE 0.1 MG/ML 10ML SYR IV PRN (16:23)
[2019-12-07] MEDS ORDERED: ePHEDrine sulfate 50 MG/ML AMP IV PRN (16:23)
[2019-12-07] MEDS ORDERED: PHENYLEPHRINE 100MCG/ML 5ML SYR IV PRN (16:23)
[2019-12-07] MEDS ORDERED: PROPOFOL IV EMULSION 10 MG/ML 20 ML VIAL IV ONE (16:37)
[2019-12-07] MEDS ORDERED: SUCCINYLCHOLINE CHLORIDE 20 MG/ML 10 ML VIAL IV ONE (16:37)
[2019-12-07] MEDS ORDERED: LIDOCAINE HCL 2% 2 ML VIAL/AMP(20MG/ML) INFIL ONE (16:37)
[2019-12-07] MEDS ORDERED: MIDAZOLAM HCL 1 MG/ML 2ML VIAL ONE (16:38)
[2019-12-07] MEDS ORDERED: fentaNYL citrate 100 MCG/2 ML VIAL ONE (16:38)
[2019-12-07] MEDS ORDERED: ONDANSETRON INJ 2 MG/ML 2 ML VIAL ONE (16:40)
[2019-12-07] MEDS ORDERED: DEXAMETHASONE SOD INJ 4 MG/ML VIAL ONE (16:47)
--- NOTE | 2019-12-07 17:12 | Operative Report ---
Post Operative Report Pre & Post Diagnosis Operation Date: 12/07/19 13:35 Pre-Op Diagnosis: Abdominal Pain Post-Op Diagnosis: Gallstones I identified the patient and participated in the time-out.: Yes Procedure Operation Date: 12/07/19 13:35 Actual Procedures p Endoscopic Ultrasonography,(Not Applicable) - Gavi Braga MD s Esophagogastroduodenoscopy(Not Applicable) - Gavi Braga MD Surgeon Gavi Braga MD [employer] None Estimated Blood Loss 0 Findings See Below (Gallstones, normal CBD) Specimens None Description of Procedure EGD/EUS I attest to the content of the Intraoperative Record and any orders documented therein. Any exceptions are noted below.
--- NOTE | 2019-12-07 17:29 | GI REPORT ---
Patient Name: Rika Melgoza Procedure Date: 12/07/2019 4:47 PM Date of : 1975 Admit Type: Inpatient Age: 44 Gender: Female Attending MD: Gavi Braga MD Procedure: Upper GI endoscopy Providers: Gavi Braga MD Referring MD: Willard Gonzalez M.d., Carter Sena Indications: Epigastric abdominal pain Medicines: General Anesthesia Complications: No immediate complications. Estimated Blood Loss: Estimated blood loss: none. Procedure: Pre-Anesthesia Assessment: - Prior to the procedure, a History and Physical was performed, and patient medications, allergies and sensitivities were reviewed. The patient's tolerance of previous anesthesia was reviewed. - The risks and benefits of the procedure and the sedation options and risks were discussed with the patient. All questions were answered and informed consent was obtained. - Patient identification and proposed procedure were verified prior to the procedure by the physician and the nurse. The procedure was verified in the procedure room. - Pre-procedure physical examination revealed no contraindications to sedation. After obtaining informed consent, the endoscope was passed under direct vision. Throughout the procedure, the patient's blood pressure, pulse, and oxygen saturations were monitored continuously. The Endoscope was introduced through the mouth, and advanced to the second part of duodenum. The upper GI endoscopy was accomplished without difficulty. The patient tolerated the procedure well. Findings: The examined esophagus was normal. The entire examined stomach was normal. The duodenal bulb and second portion of the duodenum were normal. Impression: - Normal esophagus. - Normal stomach. - Normal duodenal bulb and second portion of the duodenum. - No specimens collected. Recommendation: - Perform an upper endoscopic ultrasound (UEUS) today. Gavi Braga MD 12/07/2019 5:29:01 PM This report has been signed electronically. Note Initiated On: 12/07/2019 4:47 PM Number of Addenda: 0 I attest to the content of the Intraoperative Record and orders documented therein, exceptions below {[id number]}
--- NOTE | 2019-12-07 17:35 | GI REPORT ---
Patient Name: Rika Melgoza Procedure Date: 12/07/2019 4:55 PM Date of : 1975 Admit Type: Inpatient Age: 44 Gender: Female Attending MD: Gavi Braga MD Procedure: Upper EUS Providers: Gavi Braga MD Referring MD: Willard Gonzalez M.d., Carter Sena Indications: Common bile duct dilation (acquired) seen on MRCP, Suspected choledocholithiasis Medicines: General Anesthesia Complications: No immediate complications. Estimated Blood Loss: Estimated blood loss: none. Procedure: Pre-Anesthesia Assessment: - Prior to the procedure, a History and Physical was performed, and patient medications, allergies and sensitivities were reviewed. The patient's tolerance of previous anesthesia was reviewed. - The risks and benefits of the procedure and the sedation options and risks were discussed with the patient. All questions were answered and informed consent was obtained. - Patient identification and proposed procedure were verified prior to the procedure by the physician and the nurse. The procedure was verified in the procedure room. - Pre-procedure physical examination revealed no contraindications to sedation. After obtaining informed consent, the endoscope was passed under direct vision. Throughout the procedure, the patient's blood pressure, pulse, and oxygen saturations were monitored continuously. The scope was introduced through the mouth, and advanced to the second part of duodenum. The upper EUS was accomplished without difficulty. The patient tolerated the procedure well. Findings: ENDOSONOGRAPHIC FINDING: : There was no sign of significant endosonographic abnormality in the ampulla. No masses were identified. There was no sign of significant endosonographic abnormality in the common bile duct. The maximum diameter of the duct was 6 mm. No stones and no biliary sludge were identified. Multiple stones were visualized endosonographically in the gallbladder. They were hyperechoic and characterized by shadowing. There was no sign of significant endosonographic abnormality in the visualized portion of the liver. There was no sign of significant endosonographic abnormality in the entire pancreas. The pancreatic duct measured up to 2 mm in diameter. There was no sign of significant endosonographic abnormality in the visualized portion of the left adrenal gland. There was no sign of significant endosonographic abnormality involving the celiac trunk. Impression: - There was no sign of significant pathology in the ampulla. - There was no sign of significant pathology in the common bile duct. No stones. - Multiple stones were visualized endosonographically in the gallbladder. - There was no evidence of significant pathology in the visualized portion of the liver. - There was no sign of significant pathology in the entire pancreas. - Endosonographic images of the left adrenal gland were unremarkable. - The celiac trunk was endosonographically normal. - No specimens collected. Recommendation: - Return patient [facility] care. - Refer to a surgeon for cholecystectomy for symptomatic gallstones and clinical symptoms suggestive of recent passage of stones, also suspect chronic cholecystitis based on the HIDA scan results. Gavi Braga MD 12/07/2019 5:35:50 PM This report has been signed electronically. Note Initiated On: 12/07/2019 4:55 PM Number of Addenda: 0 I attest to the content of the Intraoperative Record and orders documented therein, exceptions below {[id number]}
--- NOTE | 2019-12-07 17:51 | Anesthesiology Progress Note ---
Date of Service December 07, 2019 Anesthesia Post Procedure Vital Signs Vital Signs: Temp Pulse Pulse Pulse Pulse Resp BP 12/07/19 17:50 37.1 C 88 16 12/07/19 17:40 98 H 16 12/07/19 17:30 96 H 16 12/07/19 17:21 36.4 C L 95 H 14 12/07/19 15:46 36.7 C 67 16 12/07/19 15:20 36.8 C 67 16 12/07/19 09:06 57 L 12/07/19 06:04 36.7 C 81 16 12/07/19 06:00 36.7 C 81 16 12/07/19 05:30 86 13 102/40 L 12/07/19 04:00 89 13 12/07/19 03:04 83 18 12/07/19 02:55 12/07/19 02:32 36.5 C 84 18 130/88 BP BP Pulse Ox 12/07/19 17:50 113/66 95 12/07/19 17:40 127/75 100 12/07/19 17:30 112/66 100 12/07/19 17:21 126/70 95 12/07/19 15:46 101/77 100 12/07/19 15:20 120/78 98 12/07/19 09:06 106/66 12/07/19 06:04 107/67 97 12/07/19 06:00 107/67 97 12/07/19 05:30 97 12/07/19 04:00 114/72 99 12/07/19 03:04 118/80 95 12/07/19 02:55 98 12/07/19 02:32 100 Pain Intensity Abdomen: Pain Intensity: 0 Transfer of Care Handoff Completed per policy Notes Mental Status: alert / awake / arousable Patient Amnestic to Procedure: Yes Nausea / Vomiting: adequately controlled Pain: adequately controlled Airway Patency, RR, SpO2: stable & adequate BP & HR: stable & adequate Hydration State: stable & adequate Anesthetic Complications: no major complications apparent and Pt Satisfied with anesthetic care
--- NOTE | 2019-12-07 18:53 | Communication Note ---
Date of Service: December 07, 2019 Patient returns from GI Upper endoscopy and EUS. Basically, patient's abdominal symptoms are from gallstones. Patient wishes to be evaluated by general surgery service whether cholecystectomy as inpatient would be the definitive treatment. Patient will get clear liquid diet for now. NPO after midnight for General Surgery service evaluation on 12/08/2019. At this time, hospitalist service will continue supportive care and also start ceftriaxone 1 gram q24 hours as a potential pre-op antibiotic
[2019-12-07] MEDS ORDERED: IBUPROFEN 200 MG TAB PO PRN (18:55)
--- NOTE | 2019-12-07 19:05 | Gastroenterology Progress Note ---
Date of Service December 07, 2019 Assessment & Plan Admission and Anticipated Discharge Date Admission Date: December 07, 2019 Subjective EUS showed: Normal CBD with no stones. Multiple stones were visualized endosonographically in the gallbladder. Recommendation: - Refer to a surgeon for cholecystectomy for symptomatic gallstones and clinical symptoms suggestive of recent passage of stones, also suspect chronic cholecystitis based on the HIDA scan results. Recall GI if needed. Results & Data ([facility]) Vital Signs (Past 12 Hours) Vital Signs Temp Pulse Pulse Pulse Resp BP BP 12/07/19 18:10 37.1 C 92 H 16 114/62 12/07/19 18:00 37.1 C 84 16 115/64 12/07/19 17:50 37.1 C 88 16 113/66 12/07/19 17:40 98 H 16 127/75 12/07/19 17:30 96 H 16 112/66 12/07/19 17:21 36.4 C L 95 H 14 126/70 12/07/19 15:46 36.7 C 67 16 101/77 12/07/19 15:20 36.8 C 67 16 120/78 12/07/19 09:06 57 L 106/66 Pulse Ox 12/07/19 18:10 98 12/07/19 18:00 98 12/07/19 17:50 95 12/07/19 17:40 100 12/07/19 17:30 100 12/07/19 17:21 95 12/07/19 15:46 100 12/07/19 15:20 98 12/07/19 09:06
[2019-12-07] MEDS: KETOROLAC TROMETHAMINE 15 MG/ML VIAL IV PRN (19:54)
[2019-12-07] MEDS: cefTRIAXone SODIUM 2,000 MG in DEXTROSE 5% 50 ML IV SCH (20:09)
[2019-12-07] MEDS: traMADol HCL 50 MG TABLET PO PRN (20:24)
--- NOTE | 2019-12-07 22:22 | XRay Report ---
XR chest 1V portable HISTORY: 44 years-old Female pre-op preoperative exam. No acute chest complaints COMPARISON: Chest radiograph 11/11/2014 TECHNIQUE: Portable AP view of the chest FINDINGS: Cardiomediastinal and hilar silhouettes are within normal limits. No pneumothorax, pleural effusion, airspace consolidation or overt pulmonary edema. Loop recorder device. Bones appear normal. IMPRESSION: No acute process. ACT 112: Negative or not required by law. The above report was generated using voice recognition software. It may contain grammatical, syntax o r spelling errors. Electronically signed by: Edwardo Agudelo M.D. 12/07/2019 10:21 PM
[2019-12-07] MEDS ORDERED: HYDROmorphone INJ 0.5 MG/0.5 ML SYR IV STA (22:47)
[2019-12-08] MEDS: ONDANSETRON INJ 2 MG/ML 2 ML VIAL IV PRN ×2 (01:52→12:37)
[2019-12-08] MEDS: traMADol HCL 50 MG TABLET PO PRN ×2 (04:07→21:30)
[2019-12-08 05:39] LABS: Basophils # (auto) 0.01 K/uL (0-0.2); Basophils % (auto) 0.2 %; Hematocrit (blood only) 30.5 % (37-47); Hemoglobin 9.8 g/dL (12.0-16.0); Immature Granulocytes # (auto) 0.02 K/uL (0.00-0.02); Immature Granulocytes % (auto) 0.3 %; Lymphocytes # (auto) 0.47 K/uL (1.2-3.4); Lymphocytes % (auto) 7.9 %; Mean Corpuscular Hgb Conc 32.1 g/dL (32-36); Mean Corpuscular Volume 80.9 fL (80-100); Mean Platelet Volume 12.1 fL (7.4-10.4); Monocytes # (auto) 0.16 K/uL (0.11-0.59); Monocytes % (auto) 2.7 %; Neutrophils % (auto) 88.9 %; Platelet Count 185 K/uL (130-400); RDW Coefficient of Variation 14.9 % (11.5-14.5); RDW Standard Deviation 43.5 fL (36.4-46.3); Red Blood Count 3.77 M/uL (4.2-5.4); White Blood Count 5.96 K/uL (4.8-10.8)
[2019-12-08 06:19] LABS: Albumin Globulin Ratio 0.8 (0.9-2); BUN Creatinine Ratio 11.7 (10-20); Bilirubin,Total 0.3 mg/dl (0.2-1); Calcium 8.3 mg/dl (8.5-10.1); Creatinine Clr Calc Pharmacy 103.2 ml/min; Est GFR (African American) 111.6; Est GFR (Non-African American) 96.3; Globulin 3.8 gm/dl (2.5-4.0); Magnesium 2.1 mg/dl (1.8-2.4); Potassium 4.2 mmol/L (3.5-5.1); Total Protein 6.8 gm/dl (6.4-8.2)
[2019-12-08] MEDS: KETOROLAC TROMETHAMINE 15 MG/ML VIAL IV PRN (06:35)
--- NOTE | 2019-12-08 07:22 | Anesthesiology Consultation ---
Date of Service December 08, 2019 Assessment & Plan (1) Encounter for pre-operative examination: Chart Review Chart Review: Acceptable Risk for Surgery History Surgery Operation Date: 12/07/19 13:35 Proposed Procedures p Endoscopic Ultrasonography, - Gavi Braga MD s Esophagogastroduodenoscopy - Gavi Braga MD Operation Date: 12/08/19 11:00 Proposed Procedures p Laparoscopic Cholecystectomy - Brad Whitt, Height/Weight Height: 5 ft 5 in Weight: 87.1 kg Allergies Allergy/AdvReac Type Severity Reaction Status Date / Time morphine Allergy Severe ANAPHYLAXIS Verified 12/07/19 03:02 shellfish derived Allergy Severe ANAPHYLAXIS Verified 12/07/19 03:02 nitroglycerin AdvReac Mild HEADACHE Verified 12/07/19 03:02 Fish Allergy Severe ALL SEAFOOD Uncoded 12/07/19 03:02 Unclassified Drugs Allergy Mild EKG Uncoded 12/07/19 03:02 ELECTRODES - RASH Medications Home Medications Medication Instructions Recorded Confirmed Last Taken diphenhydramine HCl 50 mg PO TID PRN #30 cap 06/27/19 12/07/19 Unknown hydrocortisone [Cortizone-10] 1 appln TOP BID PRN #28 gm 06/27/19 12/07/19 Un known lorazepam 1 mg PO DAILY 06/27/19 12/07/19 12/06/19 metoprolol succinate 50 mg PO DAILY 06/27/19 12/07/19 12/06/19 sertraline 100 mg PO DAILY 06/27/19 12/07/19 12/06/19 pantoprazole 40 mg PO DAILY 12/07/19 12/07/19 12/06/19 Active Medications Generic Name Dose Route Start Last Admin Trade Name Freq PRN Reason Stop Dose Admin Ceftriaxone Sodium 2,000 mg/ 70 mls @ 100 mls/hr 12/07/19 19:00 12/07/19 20:55 Dextrose IV 12/17/19 18:59 Infused Q24H NICK Infusion Protocol Ketorolac Tromethamine 15 mg 12/07/19 19:00 12/08/19 06:35 Ketorolac Tromethamine 15 Mg/Ml Vial IV 12/12/19 18:59 15 mg Q12H PRN Administration Severe Pain Lorazepam 1 mg 12/07/19 09:00 10/30/20 09:14 Lorazepam 1 Mg Tab PO 01/06/20 08:59 1 mg DAILY NICK Administration Metoprolol Succinate 50 mg 12/07/19 09:00 12/07/19 09:14 Metoprolol Succ 50mg Ext Rel Tab PO 01/06/20 08:59 Not Given DAILY NICK Ondansetron HCl 4 mg 12/07/19 06:09 12/08/19 01:52 Ondansetron Inj 2 Mg/Ml 2 Ml Vial IV 01/06/20 06:08 4 mg Q6H PRN Administration Nausea Pantoprazole Sodium 40 mg 12/07/19 09:00 12/07/19 09:14 Pantoprazole 40 Mg Tab PO 01/06/20 08:59 40 mg DAILY NICK Administration Sertraline HCl 100 mg 12/07/19 09:00 12/07/19 09:15 Sertraline Hcl 100 Mg Tablet PO 01/06/20 08:59 100 mg DAILY NICK Administration Tramadol HCl 25 mg 12/07/19 18:55 12/08/19 04:07 Tramadol Hcl 50 Mg Tablet PO 01/06/20 18:54 25 mg Q6H PRN Administration Moderate Pain NPO Date Last Intake of Fluids: 12/07/19 Time Last Intake of Fluids: 23:59 Date Last Intake of Solids: 12/07/19 Time Last Intake of Solids: 23:59 Past Medical History Medical History GERD (gastroesophageal reflux disease) Iron deficiency anemia Past Surgical History Surgical History H/O colonoscopy "09/16/14- normal" S/P D&C (status post dilation and curettage) S/P tubal ligation Social History Smoking Status: Never smoker Hx Alcohol Use: Yes Alcohol type: wine alcohol intake frequency: holidays/special occasions only Hx Substance Use: No Physical Exam Vital Signs Last Vital Signs Temp 36.9 C 12/08/19 07:06 Pulse 72 12/08/19 07:06 Resp 16 12/08/19 07:06 BP 106/61 12/08/19 07:06 Pulse Ox 96 12/08/19 07:06 Testing Laboratory Results 12/08/19 05:24 12/08/19 05:24 Urine Color Yellow 12/07/19 04:05 Urine Appearance Clear (Clear) 12/07/19 04:05 Urine pH 6.0 (4.5-7.5) 12/07/19 04:05 Ur Specific [place] 1.009 (1.000-1.030) 12/07/19 04:05 Urine Protein Negative (Negative) 12/07/19 04:05 Urine Glucose (UA) Negative (Negative) 12/07/19 04:05 Urine Ketones Negative (Negative) 12/07/19 04:05 Urine Nitrite Negative (Negative) 12/07/19 04:05 Ur Leukocyte Esterase Negative (Negative) 12/07/19 04:05
--- NOTE | 2019-12-08 07:55 | Hospitalist Progress Note ---
Date of Service December 08, 2019 Assessment & Plan (1) Gallstone: with Right Upper quadrant pain -As per History and Physical "This is a 44-year-old female with past medical history significant for GERD, history of iron deficiency anemia, anxiety, depression, history of tachyarrhythmia, left ovarian cyst, who presents with abdominal pain. The patient states the abdominal pain has been going on for 1 week on and off. She was in [facility] on Tuesday and she got a CAT scan done and it showed gallstones and she saw her PCP and was referred to GI. Was seen by GI and ordered MRI scan yesterday. She does not know the results, but as per the Epic, results show nonvisualization of the gallbladder likely contracted, mild biliary ductal dilatation, which gradually tapers distally, no choledocholithiasis. But the patient says pain is not getting better, she now has right upper quadrant pain not associated with any food intake, it has become constant now associated with some nausea, which prompted her to come to the ER. Here a gallbladder ultrasound was done which showed some small gallstones. -review of lab markers are not suggestive of choledocholithiasis but given continued symptoms, patient to get HIDA scan. At discretion of GI team whether ERCP will be performed on this hospital stay -GI service ordered pre-operative COVID 19 screening and negative -12/07/2019 December 07, 2019 evening updates: Patient returns from GI Upper endoscopy and EUS. Basically, patient's abdominal symptoms are from gallstones. Patient wishes to be evaluated by general surgery service whether cholecystectomy as inpatient would be the definitive treatment. Patient will get clear liquid diet for now. NPO after midnight for General Surgery service evaluation on 12/08/2019. At this time, hospitalist service will continue supportive care and also start ceftriaxone 1 gram q24 hours as a potential pre- op antibiotic -12/08/2019: spoke with surgeon Dr. Whitt who assessed the patient at bedside. General Surgery plans to take patient to the OR for cholecystectomy today and arrange for additional pre-operative antibiotic. Patient seen and examined by hospitalist. No acute distress but continues to have right upper quadrant pain on palpation. She denies other acute symptoms at this time - No fevers. No dizziness. No vomiting. No shortness of breath. Breathing on room air. History of tachyarrhythmias -on metoprolol, continue. Anxiety and depression -Continue Zoloft and Ativan. History of iron deficiency anemia -Hemoglobin on presentation 10.6 appears baseline -Hgb on 12/08/2019 of 9.8 pre-operatively Deep venous thrombosis prophylaxis, sequential compression devices. Admission and Anticipated Discharge Date Admission Date: December 07, 2019 Subjective spoke with surgeon Dr. Whitt who assessed the patient at bedside. General Surgery plans to take patient to the OR for cholecystectomy today and arrange for additional pre-operative antibiotic. Patient seen and examined by hospitalist. No acute distress but continues to have right upper quadrant pain on palpation. She denies other acute symptoms at this time - No fevers. No dizziness. No vomiting. No shortness of breath. Breathing on room air. Review of Systems Review of Systems: All systems reviewed & are unremarkable except as noted in Subjective Physical Exam Constitutional: cooperative Eyes: PERRL, conjunctivae normal, anicteric sclerae EOM intact bilaterally ENMT: external ear and nose normal, oropharynx normal Neck: normal visual inspection Respiratory: normal respiratory effort, lungs clear to auscultation Cardiovascular: Rate/Rhythm: regular rate and regular rhythm Gastrointestinal (Abdomen): Inspection/Auscultation: normal bowel sounds Percussion/Palpation: + abdomen tender (right upper quadrant tenderness) and abdomen soft Musculoskeletal: Head/Neck/Chest: normocephalic and head atraumatic Neurologic: PERRL, EOMI, accommodation nl, no face palsy, no dysarthria CN's II-XI intact bilaterally Psychiatric: A+Ox3, euthymic affect Results & Data Results & Data ([facility]) Vital Signs (Past 12 Hours) Vital Signs Temp Pulse Pulse Resp BP Pulse Ox 12/08/19 07:06 36.9 C 72 16 106/61 96 12/08/19 03:48 37.0 C 85 14 112/66 97 12/08/19 00:03 36.8 C 87 14 109/65 92 12/07/19 21:20 37.0 C 79 16 102/65 92 12/07/19 20:20 36.7 C 83 17 110/69 93
[2019-12-08] MEDS: METOPROLOL SUCC 50MG EXT REL TAB PO SCH (08:05)
[2019-12-08] MEDS: SERTRALINE HCL 100 MG TABLET PO SCH (08:05)
[2019-12-08] MEDS: PANTOprazole 40 MG TAB PO SCH (08:05)
[2019-12-08] MEDS: LORazepam 1 MG TAB PO SCH (08:08)
--- NOTE | 2019-12-08 08:20 | Electrocardiogram Report ---
Test Reason : Blood Pressure : / mmHG Vent. Rate : 094 BPM Atrial Rate : 094 BPM P-R Int : 158 ms QRS Dur : 084 ms QT Int : 366 ms P-R-T Axes : 053 032 039 degrees QTc Int : 457 ms Sinus rhythm with frequent Premature ventricular complexes Left atrial enlargement Borderline ECG When compared with ECG of 27-JUN-2019 11:30, Premature ventricular complexes are now Present Confirmed by Cruz Sauer ([id number]) on 12/08/2019 8:19:42 AM Referred By: REFERRED SELF Confirmed By:Cruz Sauer
--- NOTE | 2019-12-08 08:26 | Electrocardiogram Report ---
Test Reason : Blood Pressure : / mmHG Vent. Rate : 085 BPM Atrial Rate : 085 BPM P-R Int : 168 ms QRS Dur : 088 ms QT Int : 392 ms P-R-T Axes : 060 048 057 degrees QTc Int : 466 ms Normal sinus rhythm Left atrial enlargement Low voltage QRS Incomplete right bundle branch block Borderline ECG When compared with ECG of 07-DEC-2019 22:07, Premature ventricular complexes are no longer Present Confirmed by Cruz Sauer ([id number]) on 12/08/2019 8:25:55 AM Referred By: REFERRED SELF Confirmed By:Cruz Sauer
--- NOTE | 2019-12-08 09:19 | History & Physical Bridge Note ---
Date of Service December 08, 2019 History & Physical Bridge Note I have examined the patient, reviewed the History & Physical and in the interval since the performance of the History & Physical I have noted the following changes of clinical significance: no changes noted pt seen. discussed GI work up findings. pain the past 2 weeks has been RUQ with radiation into back. discussed options. discussed risks of lap tia ( bleeding/infection/injury to nearby structures such as liver, stomach, bile ducts, etc., DVT, PE, FL, CVA etc.) we also discussed postoperative expectations. We also discussed there is no guarantee this will resolve her symptoms. Following our conversation I answered all of her questions. We will proceed this morning with laparoscopic cholecystectomy.
[2019-12-08] MEDS ORDERED: BUPIVACAINE 0.5 % 5 MG/1 ML MPF 30ML VIAL ONE (09:24)
[2019-12-08] MEDS ORDERED: EPINEPHrine INJ 1 MG/ML AMP ONE (09:24)
[2019-12-08] MEDS ORDERED: GLYCOPYRROLATE 0.2 MG/ML VIAL ONE (09:38)
[2019-12-08] MEDS ORDERED: MIDAZOLAM HCL 1 MG/ML 2ML VIAL ONE (09:38)
[2019-12-08] MEDS ORDERED: LIDOCAINE HCL 2% 2 ML VIAL/AMP(20MG/ML) INFIL ONE (09:38)
[2019-12-08] MEDS ORDERED: PROPOFOL IV EMULSION 10 MG/ML 20 ML VIAL IV ONE (09:38)
[2019-12-08] MEDS ORDERED: DEXAMETHASONE SOD INJ 4 MG/ML VIAL ONE (09:38)
[2019-12-08] MEDS ORDERED: fentaNYL citrate 100 MCG/2 ML VIAL ONE ×3 (09:38→11:25)
[2019-12-08] MEDS ORDERED: ONDANSETRON INJ 2 MG/ML 2 ML VIAL ONE (09:38)
[2019-12-08] MEDS ORDERED: NEOSTIGMINE METHYLSULFATE 5 MG/5 ML SYR ONE (09:38)
[2019-12-08] MEDS ORDERED: KETOROLAC 30 MG/ML VIAL IV PRN (10:09)
[2019-12-08] MEDS ORDERED: PROMETHAZINE HCL 6.25 MG in SODIUM CHLORIDE 0.9% 50 ML IV PRN (10:09)
[2019-12-08] MEDS ORDERED: ONDANSETRON INJ 2 MG/ML 2 ML VIAL IV PRN (10:09)
[2019-12-08] MEDS ORDERED: ATROPINE SULFATE 0.1 MG/ML 10ML SYR IV PRN (10:09)
--- NOTE | 2019-12-08 11:11 | Operative Report ---
PG Post Operative Report Pre & Post Diagnosis Operation Date: 12/07/19 13:35 Pre-Op Diagnosis: Abdominal Pain Post-Op Diagnosis: Gallstones Operation Date: 12/08/19 11:00 Pre-Op Diagnosis: Gallstone Post-Op Diagnosis: Gallstone I identified the patient and participated in the time-out.: Yes Procedure Operation Date: 12/07/19 13:35 Actual Procedures p Endoscopic Ultrasonography,(Not Applicable) - Gavi Braga MD s Esophagogastroduodenoscopy(Not Applicable) - Gavi Braga MD Operation Date: 12/08/19 11:00 Actual Procedures p Laparoscopic Cholecystectomy - Brad Whitt DO Surgeon Brad Whitt DO Piercing Specialist None Estimated Blood Loss 5 Findings See Below (Gallstones, normal CBD) Specimens gallbladder Description of Procedure After informed consent was obtained the patient was taken to the operating room and placed in the supine position. After successful intubation the abdomen was sterilely prepped and draped in usual fashion. A periumbilical incision was made with an 11 blade scalpel and carried down through the soft tissue using electrocautery. The anterior rectus fascia was opened using electrocautery and 2 #0 Vicryl stay sutures were placed. The peritoneum was elevated with hemostats and incised under direct vision using Metzenbaum scissors. A finger sweep was performed and a 12 mm Barrera trocar was placed. The abdomen was insufflated to 18 mmHg. The laparoscope was inserted and the abdomen was examined in 360. No gross abnormalities were identified. A subxiphoid 5 mm port and 2 right upper quadrant 5 mm ports were placed under direct vision. The patient was placed in a reverse Trendelenburg position and slightly airplaned to the left. The gallbladder was grasped and elevated superiorly and laterally. A [place] dissector was used to take down adhesions around the neck of the gallbladder. The cystic duct was identified and skeletonized. It was clipped twice proximally and once distally and transected using a laparoscopic scissor. In similar fashion the cystic artery was identified and skeletonized clipped and divided. The gallbladder was removed from the gallbladder fossa with electrocautery. It was placed into an Endo Catch bag. Thorough irrigation was performed. At the end of the procedure there was adequate hemostasis and no evidence of any bile leaks. A final look around the abdomen showed no other abnormalities. The gallbladder and trochars were all removed and the abdomen was desufflated. The fascia of the camera port was closed using 0 Vicryl in a [id number] fashion. All the wounds were irrigated and closed using 4-0 Monocryl. Marcaine was injected around them for postoperative analgesia and skin glue used as a dressing. The patient was awaken extubated and transferred to recovery in stable condition. I attest to the content of the Intraoperative Record and any orders documented therein. Any exceptions are noted below.
[2019-12-08] MEDS: fentaNYL citrate 100 MCG/2 ML VIAL IV PRN ×4 (11:25→11:40)
--- NOTE | 2019-12-08 11:48 | Anesthesiology Progress Note ---
Date of Service December 08, 2019 Anesthesia Post Procedure Vital Signs Vital Signs: Temp Pulse Pulse Pulse Pulse Resp BP 12/08/19 11:40 78 18 129/75 12/08/19 11:30 88 18 121/71 12/08/19 11:20 87 18 132/74 12/08/19 11:10 36.8 C 95 H 18 130/75 12/08/19 08:02 88 12/08/19 07:06 36.9 C 72 16 12/08/19 03:48 37.0 C 85 14 12/08/19 00:03 36.8 C 87 14 12/07/19 21:20 37.0 C 79 16 12/07/19 20:20 36.7 C 83 17 12/07/19 19:20 36.7 C 62 17 12/07/19 18:20 36.8 C 75 16 12/07/19 18:10 37.1 C 92 H 16 114/62 12/07/19 18:00 37.1 C 84 16 115/64 12/07/19 17:50 37.1 C 88 16 113/66 12/07/19 17:40 98 H 16 127/75 12/07/19 17:30 96 H 16 112/66 12/07/19 17:21 36.4 C L 95 H 14 126/70 12/07/19 15:46 36.7 C 67 16 12/07/19 15:20 36.8 C 67 16 120/78 BP Pulse Ox 12/08/19 11:40 98 12/08/19 11:30 96 12/08/19 11:20 99 12/08/19 11:10 97 12/08/19 08:02 120/66 12/08/19 07:06 106/61 96 12/08/19 03:48 112/66 97 12/08/19 00:03 109/65 92 12/07/19 21:20 102/65 92 12/07/19 20:20 110/69 93 12/07/19 19:20 110/67 99 12/07/19 18:20 112/64 95 12/07/19 18:10 98 12/07/19 18:00 98 12/07/19 17:50 95 12/07/19 17:40 100 12/07/19 17:30 100 10/30/20 17:21 95 12/07/19 15:46 101/77 100 12/07/19 15:20 98 Pain Intensity Abdomen: Pain Intensity: 0 Right Flank: Pain Intensity: 6 Transfer of Care Handoff Completed per policy Notes Mental Status: alert / awake / arousable Patient Amnestic to Procedure: Yes Nausea / Vomiting: adequately controlled Pain: adequately controlled Airway Patency, RR, SpO2: stable & adequate BP & HR: stable & adequate Hydration State: stable & adequate Anesthetic Complications: no major complications apparent
[2019-12-08] MEDS: HYDROmorphone INJ 1 MG/ML SYRINGE IV PRN ×2 (12:03→12:08)
[2019-12-08] MEDS ORDERED: HYDROmorphone INJ 0.5 MG/0.5 ML SYR ONE (12:04)
[2019-12-08] MEDS ORDERED: LACTATED RINGER'S 1,000 ML IV SCH (13:15)
[2019-12-08] MEDS ORDERED: HYDROmorphone INJ 1 MG/ML SYRINGE IV PRN (13:16)
[2019-12-08] MEDS ORDERED: HYDROmorphone INJ 0.5 MG/0.5 ML SYR IV STA ×2 (14:45→18:31)
[2019-12-08] MEDS ORDERED: SODIUM CHLORIDE 0.9% 1000ML 1,000 ML IV SCH (14:45)
[2019-12-08] MEDS ORDERED: HYDROmorphone INJ 0.5 MG/0.5 ML SYR IV PRN (14:48)
[2019-12-08] MEDS ORDERED: POLYETHYLENE (MIRALAX) 17 GM PACK PO PRN (18:31)
[2019-12-08] MEDS ORDERED: diphenhydrAMINE 50 MG/ML VIAL IV PRN (18:32)
[2019-12-08] MEDS ORDERED: ACETAMINOPHEN 1,000 MG/100 ML VIAL IV PRN (18:33)
[2019-12-08] MEDS ORDERED: LORazepam 0.5 MG/1 ML VIAL IV PRN (18:35)
[2019-12-08] MEDS: cefTRIAXone SODIUM 2,000 MG in DEXTROSE 5% 50 ML IV SCH (18:59)
[2019-12-08] MEDS: SENNA 8.6 MG TAB PO SCH (19:46)
[2019-12-08] MEDS: DOCUSATE SODIUM 100 MG CAP PO SCH (19:46)
[2019-12-09] MEDS ORDERED: COUGH DROP (SUGAR FREE) LOZ 24 LOZ/1 BOX BUCCAL ONE (00:54)
[2019-12-09] MEDS: traMADol HCL 50 MG TABLET PO PRN (04:08)
[2019-12-09 06:09] LABS: Basophils # (auto) 0.01 K/uL (0-0.2); Basophils % (auto) 0.1 %; Eosinophils # (auto) 0.01 K/uL (0-0.5); Eosinophils % (auto) 0.1 %; Hematocrit (blood only) 26.3 % (37-47); Hemoglobin 8.4 g/dL (12.0-16.0); Immature Granulocytes # (auto) 0.01 K/uL (0.00-0.02); Immature Granulocytes % (auto) 0.1 %; Lymphocytes # (auto) 1.29 K/uL (1.2-3.4); Lymphocytes % (auto) 17.1 %; Mean Corpuscular Hgb Conc 31.9 g/dL (32-36); Mean Corpuscular Volume 81.4 fL (80-100); Mean Platelet Volume 12.2 fL (7.4-10.4); Monocytes % (auto) 6.6 %; Neutrophils # (auto) 5.71 K/uL (1.4-6.5); Platelet Count 165 K/uL (130-400); RDW Coefficient of Variation 15.3 % (11.5-14.5); RDW Standard Deviation 45.5 fL (36.4-46.3); Red Blood Count 3.23 M/uL (4.2-5.4); White Blood Count 7.53 K/uL (4.8-10.8)
--- NOTE | 2019-12-09 06:37 | Surgery Progress Note ---
Date of Service December 09, 2019 Assessment & Plan (1) Gallstones: -s/p cholecystectomy on 12/08/19 -will continue slow advancement of diet -continue pain control measures -encourage ambulation as above. pt with multiple c/o's. "pain". "just don't feel right". asking to continue dilaudid. pain out of proportion to exam and surgery performed. d/w primary service. will d/c dilaudid and add IV acetaminophen. advance diet. ok for d/c from my standpoint when ok with primary service. instructions discussed. Admission and Anticipated Discharge Date Admission Date: December 07, 2019 Subjective Pt. notes significant incisional pain. No N/V. She had an episode of lightheadedness while using the restroom last night. She notes she hit her head but has no other injuries. Currently no lightheadedness. She has tolerated liquids. No BM or flatus since surgery. Physical Exam Constitutional: well developed and well nourished; no acute distress Respiratory: normal respiratory effort, lungs clear to auscultation Gastrointestinal (Abdomen): Inspection/Auscultation: + hypoactive bowel sounds Percussion/Palpation: + abdomen tender (TTP near incisions) and abdomen soft Neurologic: moves all extremities Psychiatric: Orientation: alert and oriented x 3 Affect: + anxious affect Results & Data ([facility]) Vital Signs (Past 12 Hours) Vital Signs Temp Pulse Resp BP BP Pulse Ox 12/09/19 03:55 36.8 C 84 16 106/59 L 99 12/08/19 23:09 36.7 C 83 16 115/67 97 PG Care Time/CCT Total # of Minutes Spent Total Time Spent with Patient: Total time spent is greater than 50% in coordination of care (as documented) at patient's floor/unit and/or counseling patient: Coding Level of Care Code None Diagnoses Gallstones K80.20
[2019-12-09 06:39] LABS: Albumin Level 2.8 gm/dl (3.4-5.0); BUN Creatinine Ratio 13.5 (10-20); Creatinine Clr Calc Pharmacy 112.2 ml/min; Est GFR (African American) 121.8; Est GFR (Non-African American) 105.1; Potassium 3.8 mmol/L (3.5-5.1)
[2019-12-09 06:46] LABS: Albumin Globulin Ratio 0.9 (0.9-2); Bilirubin,Total 0.3 mg/dl (0.2-1); Globulin 3.1 gm/dl (2.5-4.0); Total Protein 5.9 gm/dl (6.4-8.2)
[2019-12-09] MEDS ORDERED: KETOROLAC TROMETHAMINE 15 MG/ML VIAL IV PRN (08:33)
[2019-12-09] MEDS: SENNA 8.6 MG TAB PO SCH (09:04)
[2019-12-09] MEDS: SERTRALINE HCL 100 MG TABLET PO SCH (09:04)
[2019-12-09] MEDS: DOCUSATE SODIUM 100 MG CAP PO SCH ×2 (09:04→22:18)
[2019-12-09] MEDS: LORazepam 1 MG TAB PO SCH (09:04)
[2019-12-09] MEDS: PANTOprazole 40 MG TAB PO SCH (09:05)
[2019-12-09] MEDS: ACETAMINOPHEN 1,000 MG/100 ML VIAL IV SCH ×2 (09:05→16:54)
[2019-12-09] MEDS: METOPROLOL SUCC 50MG EXT REL TAB PO SCH (09:07)
--- NOTE | 2019-12-09 13:07 | Hospitalist Progress Note ---
Date of Service December 09, 2019 Assessment & Plan (1) Gallstone: with Right Upper quadrant pain -As per History and Physical "This is a 44-year-old female with past medical history significant for GERD, history of iron deficiency anemia, anxiety, depression, history of tachyarrhythmia, left ovarian cyst, who presents with abdominal pain. The patient states the abdominal pain has been going on for 1 week on and off. She was in [facility] on Tuesday and she got a CAT scan done and it showed gallstones and she saw her PCP and was referred to GI. Was seen by GI and ordered MRI scan yesterday. She does not know the results, but as per the Epic, results show nonvisualization of the gallbladder likely contracted, mild biliary ductal dilatation, which gradually tapers distally, no choledocholithiasis. But the patient says pain is not getting better, she now has right upper quadrant pain not associated with any food intake, it has become constant now associated with some nausea, which prompted her to come to the ER. Here a gallbladder ultrasound was done which showed some small gallstones. -review of lab markers are not suggestive of choledocholithiasis but given continued symptoms, HIDA scan was done: "Unremarkable nuclear hepatobiliary scan. There is no scintigraphic evidence of cholecystitis. At discretion of GI team whether ERCP will be performed on this hospital stay" -GI service ordered pre-operative COVID 19 screening and negative -12/07/2019 December 07, 2019 evening updates: Patient returns from GI Upper endoscopy and EUS. Normal upper EGD and no blockage in bile duct. Patient's abdominal symptoms are from gallstones. Patient wish to be evaluated by general surgery service whether cholecystectomy as inpatient would be the definitive treatment. Patient will get clear liquid diet for now. NPO after midnight for General Surgery service evaluation on 12/08/2019. At this time, hospitalist service will continue supportive care and also start ceftriaxone 1 gram q24 hours as a potential pre-op antibiotic -12/08/2019: s/p cholecystectomy on 12/08/[address] Whitt 12/09/2019 Patient seen and examined at bedside. Patient with mild abdominal discomforts. No nausea. no vomiting. patient has been ambulatory. Patient was evaluated by general surgery who has cleared patient for discharge and advised against further dilaudid. Patient not in acute distress. She wishes to stay further in the hospital for now to assess her own pain tolerance with the solid diet. History of tachyarrhythmias -on metoprolol, continue. Anxiety and depression -Continue Zoloft and Ativan. Anemia, also History of iron deficiency anemia -Hemoglobin on presentation 10.6 appears baseline -Hgb on 12/08/2019 of 9.8 pre-operatively, Hgb as 8.4 on 12/09/2019 post- operative day -start iron supplements Deep venous thrombosis prophylaxis, sequential compression devices. Admission and Anticipated Discharge Date Admission Date: December 07, 2019 Subjective Patient seen and examined at bedside. Patient with mild abdominal discomforts. No nausea. no vomiting. patient has been ambulatory. Patient was evaluated by general surgery who has cleared patient for discharge and advised against further dilaudid. Patient not in acute distress. She wishes to stay further in the hospital for now to assess her own pain tolerance with the solid diet. Review of Systems Review of Systems: All systems reviewed & are unremarkable except as noted in Subjective Physical Exam Constitutional: cooperative Eyes: PERRL, conjunctivae normal, anicteric sclerae EOM intact bilaterally ENMT: external ear and nose normal, oropharynx normal Neck: normal visual inspection Respiratory: normal respiratory effort, lungs clear to auscultation Cardiovascular: Rate/Rhythm: regular rate and regular rhythm Gastrointestinal (Abdomen): Inspection/Auscultation: normal bowel sounds Percussion/Palpation: abdomen soft laproscopic incisions are closed. patient has some ecchymosis around umbilical area Musculoskeletal: Head/Neck/Chest: normocephalic and head atraumatic Neurologic: PERRL, EOMI, accommodation nl, no face palsy, no dysarthria CN's II-XI intact bilaterally Psychiatric: A+Ox3, euthymic affect Results & Data Results & Data ([facility]) Vital Signs (Past 12 Hours) Vital Signs Temp Pulse Pulse Resp BP Pulse Ox 12/09/19 09:07 78 108/71 12/09/19 07:01 36.9 C 93 H 16 94/55 L 94 12/09/19 03:55 36.8 C 84 16 106/59 L 99
[2019-12-09] MEDS: FERROUS SULFATE 325 MG TAB PO SCH (16:54)
[2019-12-09] MEDS: cefTRIAXone SODIUM 2,000 MG in DEXTROSE 5% 50 ML IV SCH (18:31)
[2019-12-10] MEDS: ACETAMINOPHEN 1,000 MG/100 ML VIAL IV SCH ×2 (01:07→08:54)
[2019-12-10] MEDS: DOCUSATE SODIUM 100 MG CAP PO SCH (07:48)
[2019-12-10] MEDS: SENNA 8.6 MG TAB PO SCH (07:48)
[2019-12-10] MEDS: PANTOprazole 40 MG TAB PO SCH (07:49)
[2019-12-10] MEDS: FERROUS SULFATE 325 MG TAB PO SCH (07:49)
[2019-12-10] MEDS: SERTRALINE HCL 100 MG TABLET PO SCH (07:49)
[2019-12-10] MEDS: METOPROLOL SUCC 50MG EXT REL TAB PO SCH (07:49)
[2019-12-10] MEDS: LORazepam 1 MG TAB PO SCH (08:54)
--- NOTE | 2019-12-10 09:43 | Hospitalist Progress Note ---
Date of Service December 10, 2019 Assessment & Plan (1) Gallstone: with Right Upper quadrant pain -As per History and Physical "This is a 44-year-old female with past medical history significant for GERD, history of iron deficiency anemia, anxiety, depression, history of tachyarrhythmia, left ovarian cyst, who presents with abdominal pain. The patient states the abdominal pain has been going on for 1 week on and off. She was in [facility] on Tuesday and she got a CAT scan done and it showed gallstones and she saw her PCP and was referred to GI. Was seen by GI and ordered MRI scan yesterday. She does not know the results, but as per the Epic, results show nonvisualization of the gallbladder likely contracted, mild biliary ductal dilatation, which gradually tapers distally, no choledocholithiasis. But the patient says pain is not getting better, she now has right upper quadrant pain not associated with any food intake, it has become constant now associated with some nausea, which prompted her to come to the ER. Here a gallbladder ultrasound was done which showed some small gallstones. -review of lab markers are not suggestive of choledocholithiasis but given continued symptoms, HIDA scan was done: "Unremarkable nuclear hepatobiliary scan. There is no scintigraphic evidence of cholecystitis. At discretion of GI team whether ERCP will be performed on this hospital stay" -GI service ordered pre-operative COVID 19 screening and negative -12/07/2019 December 07, 2019 evening updates: Patient returns from GI Upper endoscopy and EUS. Normal upper EGD and no blockage in bile duct. Patient's abdominal symptoms are from gallstones. Patient wish to be evaluated by general surgery service whether cholecystectomy as inpatient would be the definitive treatment. Patient will get clear liquid diet for now. NPO after midnight for General Surgery service evaluation on 12/08/2019. At this time, hospitalist service will continue supportive care and also start ceftriaxone 1 gram q24 hours as a potential pre-op antibiotic -12/08/2019: s/p cholecystectomy on 12/08/[address] Whitt 12/09/2019 Patient seen and examined at bedside. Patient with mild abdominal discomforts. No nausea. no vomiting. patient has been ambulatory. Patient was evaluated by general surgery who has cleared patient for discharge and advised against further dilaudid. Patient not in acute distress. She wishes to stay further in the hospital for now to assess her own pain tolerance with the solid diet. 12/10/2019 :discharge to home (discharge pharmacy [facility] [place] [address]. Patient may take acetaminophen 325 mg every 6 hours as needed for pain; also iron supplement twice a day for anemia for 7 days Patient has appointment [facility] Dr. Sena on 12/17/2019 at 3 PM at [address] [place] [id number] for hospital follow up and repeat CBC labs General surgery discharge instructions of lifting no more than 10 pounds; may shower but tub soaks Patient should follow up ensure follow up appointment with general surgery Dr. Whitt of his colleagues with [facility] general surgery clinic on [address] [place] [address] Hours: Tuesday through , from 8:00 am to 5:00 pm Patient may return to work work in 2 weeks starting on 12/24/2019 when all clinic follow ups are completed) History of tachyarrhythmias -on metoprolol, continue. Anxiety and depression -Continue Zoloft and Ativan. Anemia, also History of iron deficiency anemia -Hemoglobin on presentation 10.6 appears baseline -Hgb on 12/08/2019 of 9.8 pre-operatively, Hgb as 8.4 on 12/09/2019 post- operative day -started iron supplements on 12/09/2019, continue Admission and Anticipated Discharge Date Admission Date: December 07, 2019 Subjective Patient reports symptomatic improvement and ready for hospital discharge i.e. no acute abdomen discomforts. continues to be ambulatory. no nausea. no vomiting. n o chest pain. no shortness of breath. continues to be on room air. denies other symptoms on exam. Hospital discharge instructions discussed at length Review of Systems Review of Systems: All systems reviewed & are unremarkable except as noted in Subjective Physical Exam Constitutional: cooperative Eyes: PERRL, conjunctivae normal, anicteric sclerae EOM intact bilaterally ENMT: external ear and nose normal, oropharynx normal Neck: normal visual inspection Respiratory: normal respiratory effort, lungs clear to auscultation Cardiovascular: Rate/Rhythm: regular rate and regular rhythm Gastrointestinal (Abdomen): Inspection/Auscultation: normal bowel sounds Percussion/Palpation: abdomen soft Musculoskeletal: Head/Neck/Chest: normocephalic and head atraumatic Skin: Trauma: + evidence of skin trauma (ecchymosis above umbilicus, surgical incissions remain closed) Neurologic: PERRL, EOMI, accommodation nl, no face palsy, no dysarthria CN's II-XI intact bilaterally Psychiatric: A+Ox3, euthymic affect Results & Data Results & Data ([facility]) Vital Signs (Past 12 Hours) Vital Signs Temp Pulse Pulse Pulse Resp BP BP 12/10/19 09:38 36.6 C 85 93 H 72 18 105/64 121/72 12/10/19 07:22 36.6 C 72 18 121/72 12/10/19 00:00 36.6 C 81 16 105/64 Pulse Ox 12/10/19 09:38 96 12/10/19 07:22 96 12/10/19 00:00 94
--- NOTE | 2019-12-10 09:45 | Discharge Summary ---
Date of Service December 10, 2019 Admission HPI Per Admitting Provider DATE OF ADMISSION: 12/07/2019 CHIEF COMPLAINT: Abdominal pain. HISTORY OF PRESENT ILLNESS: This is a 44-year-old female with past medical history significant for GERD, history of iron deficiency anemia, anxiety, depression, history of tachyarrhythmia, left ovarian cyst, who presents with abdominal pain. The patient states the abdominal pain has been going on for 1 week on and off. She was in [facility] on Tuesday and she got a CAT scan done and it showed gallstones and she saw her PCP and was referred to GI. Was seen by GI and ordered MRI scan yesterday. She does not know the results, but as per the Epic, results show nonvisualization of the gallbladder likely contracted, mild biliary ductal dilatation, which gradually tapers distally, no choledocholithiasis. But the patient says pain is not getting better, she now has right upper quadrant pain not associated with any food intake, it has become constant now associated with some nausea, which prompted her to come to the ER. Here a gallbladder ultrasound was done which showed some small gallstones. Even after pain medication, still has significant pain, so we are consulted for admission and further management. The patient's hemodynamics are stable. She is having a headache constant. Denies any blurred vision. No earache, no runny nose, no sore throat, no loss of sense of smell or taste. No cough, no shortness of breath, no chest pain. She is somewhat constipated. No dizziness. No blood in stool or black stool. Normal bladder movements. No hematuria. No burning micturition. No rash. Principal Diagnosis Gallstone with Right Upper quadrant pain s/p Laparoscopic cholecystectomy Anemia Discharge Exam Constitutional cooperative Eyes PERRL, conjunctivae normal, anicteric sclerae EOM intact bilaterally ENMT external ear and nose normal, oropharynx normal Neck normal visual inspection Respiratory normal respiratory effort, lungs clear to auscultation Cardiovascular Rate/Rhythm: regular rate and regular rhythm Gastrointestinal (Abdomen) Inspection/Auscultation: normal bowel sounds Percussion/Palpation: abdomen soft Musculoskeletal Head/Neck/Chest: normocephalic and head atraumatic Skin Trauma: + evidence of skin trauma (ecchymosis above umbilicus, surgical incissions remain closed) Neurologic PERRL, EOMI, accommodation nl, no face palsy, no dysarthria CN's II-XI intact bilaterally Psychiatric A+Ox3, euthymic affect Discharge Data Allergies Allergy/AdvReac Type Severity Reaction Status Date / Time morphine Allergy Severe ANAPHYLAXIS Verified 12/07/19 03:02 shellfish derived Allergy Severe ANAPHYLAXIS Verified 12/07/19 03:02 nitroglycerin AdvReac Mild HEADACHE Verified 12/07/19 03:02 Fish Allergy Severe ALL SEAFOOD Uncoded 12/07/19 03:02 Unclassified Drugs Allergy Mild EKG Uncoded 12/07/19 03:02 ELECTRODES - RASH Consultations 12/07/19 04:20 ED Decision to Admit Stat 12/07/19 06:09 Consult Case Management - Discharge Planning Routine 12/07/19 08:00 Consult Gastroenterology Routine Consult General Surgery Routine Procedures Performed Operation Date: 12/07/19 13:35 Actual Procedures p Endoscopic Ultrasonography,(Not Applicable) - Gavi Braga MD s Esophagogastroduodenoscopy(Not Applicable) - Gavi Braga MD Operation Date: 12/08/19 11:00 Actual Procedures p Laparoscopic Cholecystectomy - Brad Whitt, Ordered Studies 12/07/19 02:41 US gallbladder Urgent 12/07/19 16:46 US upper EUS PACS images Routine 12/08/19 07:00 FL ERCP biliary ductal Routine Hospital Course (1) Gallstone: with Right Upper quadrant pain s/p Laparoscopic cholecystectomy -As per History and Physical "This is a 44-year-old female with past medical history significant for GERD, history of iron deficiency anemia, anxiety, depression, history of tachyarrhythmia, left ovarian cyst, who presents with abdominal pain. The patient states the abdominal pain has been going on for 1 week on and off. She was in [facility] on Tuesday and she got a CAT scan done and it showed gallstones and she saw her PCP and was referred to GI. Was seen by GI and ordered MRI scan yesterday. She does not know the results, but as per the Epic, results show nonvisualization of the gallbladder likely contracted, mild biliary ductal dilatation, which gradually tapers distally, no choledocholithiasis. But the patient says pain is not getting better, she now has right upper quadrant pain not associated with any food intake, it has become constant now associated with some nausea, which prompted her to come to the ER. Here a gallbladder ultrasound was done which showed some small gallstones. -review of lab markers are not suggestive of choledocholithiasis but given continued symptoms, HIDA scan was done: "Unremarkable nuclear hepatobiliary scan. There is no scintigraphic evidence of cholecystitis. At discretion of GI team whether ERCP will be performed on this hospital stay" -GI service ordered pre-operative COVID 19 screening and negative -12/07/2019 December 07, 2019 evening updates: Patient returns from GI Upper endoscopy and EUS. Normal upper EGD and no blockage in bile duct. Patient's abdominal symptoms are from gallstones. Patient wish to be evaluated by general surgery service whether cholecystectomy as inpatient would be the definitive treatment. Patient will get clear liquid diet for now. NPO after midnight for General Surgery service evaluation on 12/08/2019. At this time, hospitalist service will continue supportive care and also start ceftriaxone 1 gram q24 hours as a potential pre-op antibiotic -12/08/2019: s/p cholecystectomy on 12/08/[address] Whitt 12/09/2019 Patient seen and examined at bedside. Patient with mild abdominal discomforts. No nausea. no vomiting. patient has been ambulatory. Patient was evaluated by general surgery who has cleared patient for discharge and advised against further dilaudid. Patient not in acute distress. She wishes to stay further in the hospital for now to assess her own pain tolerance with the solid diet. 12/10/2019 :discharge to home (discharge pharmacy [address] [address]. Patient may take acetaminophen 325 mg every 6 hours as needed for pain; also iron supplement twice a day for anemia for 7 days Patient has appointment [facility] Dr. Sena on 12/17/2019 at 3 PM at [address] [place] [address] for hospital follow up and repeat CBC labs General surgery discharge instructions of lifting no more than 10 pounds; may shower but tub soaks Patient should follow up ensure follow up appointment with general surgery Dr. Whitt of his colleagues with [facility] general surgery clinic on [address] [place] [address] [place] [id number] Hours: Tuesday through , from 8:00 am to 5:00 pm Patient may return to work work in 2 weeks starting on 12/24/2019 when all clin ic follow ups are completed) History of tachyarrhythmias -on metoprolol, continue. Anxiety and depression -Continue Zoloft and Ativan. Anemia, also History of iron deficiency anemia -Hemoglobin on presentation 10.6 appears baseline -Hgb on 12/08/2019 of 9.8 pre-operatively, Hgb as 8.4 on 12/09/2019 post- operative day -started iron supplements on 12/09/2019, continue Total Time Total Time Spent Total Time Spent (In Minutes): 40 minutes Total Time Includes: Examination of the Patient, Medication Reconciliation and Communication With Other Providers Discharge Plan Discharge Items Patient Disposition: Home - Self-Care Reason For Visit: ABDOMINAL PAIN Discharge Diagnosis: Gallstone with Right Upper quadrant pain s/p Laparoscopic cholecystectomy Anemia Condition on Discharge: Good Activity: Per Instructions section Lifting: No more than 10 pounds Bathing Comment: may shower. no tub soaks Exercise/Sports: Wait until after follow-up appointment Non-emergency contact: Primary Care Provider and Surgeon Call non-emergency contact if: your symptoms worsen, your pain is unusual for you, your temperature is above 101, your wound has increased drainage and your wound pain has increased Follow-up/Referrals: Brad Whitt DO [Surgeon] - 12/24/19 11:00 am Carter Sena DO [Primary Care Provider] - Diet: Low Fat Addtl Attending Provider Instructions: discharge to home discharge pharmacy [address] [address]. Patient may take acetaminophen 325 mg every 6 hours as needed for pain; also iron supplement twice a day for anemia for 7 days Patient has appointment [facility] Dr. Sena on 12/17/2019 at 3 PM at [address] [place], [place] [address] for hospital follow up and repeat CBC labs General surgery discharge instructions of lifting no more than 10 pounds; may shower but tub soaks Patient should follow up ensure follow up appointment with general surgery Dr. Whitt of his colleagues with [facility] general surgery clinic on [address] [place] [address] [place] [id number] Hours: Tuesday through , from 8:00 am to 5:00 pm Patient may return to work work in 2 weeks starting on 12/24/2019 when all clinic follow ups are completed Pending Studies at Discharge: No Stand-Alone Forms: My [facility], Smoking Cessation Medications and DC Order Prescriptions: New acetaminophen 325 mg capsule 325 mg PO Q6H PRN (Reason: pain) 5 Days Qty: 20 RF: 0 ferrous sulfate 325 mg (65 mg iron) Tablet,Delayed Release (Dr/Ec) 325 mg PO BIDM 7 Days Qty: 14 RF: 0 Continued metoprolol succinate 50 mg tablet extended release 24 hr 50 mg PO DAILY RF: 0 sertraline 100 mg tablet 100 mg PO DAILY RF: 0 lorazepam 1 mg tablet 1 mg PO DAILY RF: 0 diphenhydramine HCl 50 mg capsule 50 mg PO TID PRN (Reason: itching) Qty: 30 RF: 0 hydrocortisone [Cortizone-10] 1 % cream 1 appln TOP BID PRN (Reason: itching) Qty: 28 RF: 2 pantoprazole 40 mg tablet,delayed release (DR/EC) 40 mg PO DAILY RF: 0 Discharge Orders: Discharge Order (Routine); Ordered 12/10/19 Ordered By: Willard Gonzalez Admission Data Admit Date/Time: 12/07/19 05:09 Attending Provider: Willard Gonzalez Admit Provider: Uriah Alexander Primary Care Provider: Carter Sena Other Providers: Uriah Alexander ; Ely Cerda ; Carlos Manzo ; Rosalinda Morfin ; Ayaka Zarate ; Thuan Faith ; Alok Tyler ; Natalie Zacarias ; Lashae Vidales ; Jose Merritt Jr ; Luanne Wong ; Ashlyn Bridges
--- NOTE | 2019-12-10 09:46 | Surgery Progress Note ---
Date of Service December 10, 2019 Assessment & Plan (1) Gallstones: s/p laparoscopic cholecystectomy patient feeling better regarding pain control than yesterday tolerating a diet without nausea/vomiting okay for discharge from our standpoint when cleared by medicine follow up with dr. lee in 1-2 weeks Admission and Anticipated Discharge Date Admission Date: December 07, 2019 Subjective Patient appears drowsy this AM. She says her pain is better controlled. She is tolerating a diet without nausea/vomiting. Physical Exam Physical Exam: drowsy, but arousable and communicative Gastrointestinal (Abdomen): Inspection/Auscultation: + abdominal surgical incision (c/d/i); abdomen not distended Percussion/Palpation: abdomen soft; abdomen nontender Results & Data ([facility]) Vital Signs (Past 12 Hours) Vital Signs Temp Pulse Pulse Pulse Resp BP BP 12/10/19 09:38 36.6 C 85 93 H 72 18 105/64 121/72 12/10/19 07:22 36.6 C 72 18 121/72 12/10/19 00:00 36.6 C 81 16 105/64 Pulse Ox 12/10/19 09:38 96 12/10/19 07:22 96 12/10/19 00:00 94 PG Care Time/CCT Total # of Minutes Spent Total Time Spent with Patient: Total time spent is greater than 50% in coordination of care (as documented) at patient's floor/unit and/or counseling patient: Coding Level of Care Code None Diagnoses Gallstones K80.20
== END 2019-12-10 11:33 | disposition home or self-care (01) | DRG 446 ==
LOC: ED 02:29 → 3W 05:09 → SUATTDRO 05:09 → 3W 05:43

== ENCOUNTER 2020-09-05 10:20 | Observation (INO) ==
--- NOTE | 2020-09-02 10:02 | Anesthesiology Consultation ---
Date of Service September 02, 2020 Assessment & Plan (1) Encounter for pre-operative examination: Chart Review Chart Review: Acceptable Risk for Surgery (pending preop Covid testing and DOS labs) and Patient NOT seen in Pre Admission Testing -Due to anemia- will order CBC with diff and T&S stat AM of surgery - Check test AM DOS Per nursing assessment 09/02/2020, patient denies any recent travel. No known Covid infection in the past 90 days. Patient is not vaccinated for Covid. No known Covid positive contacts or Covid related symptoms. Preop Covid testing scheduled 09/02/20= will await results Hysteroscopy with biopsy and/or polypectomy with or without D&C at [facility] 07/24/2020 = done under [place]. LMA size 3 placed with 1 attempt. History Surgery Operation Date: 09/05/20 07:30 Proposed Procedures p Robotic Assisted Total Laparoscopic Hysterectomy, Bilateral Salphingectomy and Cystoscopy - Candelaria Peterson Height/Weight Height: 5 ft 5 in Weight: 81.647 kg Allergies Allergy/AdvReac Type Severity Reaction Status Date / Time morphine Allergy Severe ANAPHYLAXIS Verified 09/02/20 08:41 shellfish derived Allergy Severe ANAPHYLAXIS Verified 09/02/20 08:41 nitroglycerin AdvReac Mild HEADACHE Verified 09/02/20 08:41 Fish Allergy Severe ALL SEAFOOD Uncoded 09/02/20 08:41 Unclassified Drugs Allergy Mild EKG Uncoded 09/02/20 08:41 ELECTRODES - RASH Medications Home Medications Medication Instructions Recorded Confirmed Last Taken lorazepam 1 mg tablet 1 mg PO QAM 06/27/19 09/02/20 12/06/19 metoprolol succinate 50 mg 50 mg PO QAM 06/27/19 09/02/20 12/06/19 tablet,extended release 24 hr sertraline 100 mg tablet 100 mg PO QAM 06/27/19 09/02/20 12/06/19 Past Medical History Medical History (Updated 09/02/20 @ 10:10 by Bianka Caban PA-C) Arrhythmia Tachy-palpitations- s/p LINQ insertion by EP (intermittent palpitations) LINQ blower and compressor assembler replaced 04/2020 (due to first LINQ being end of life) Per EP= Sinus tachycardia probably due to iron deficiency anemia and anxiety- palpitations improved with iron infusions GERD (gastroesophageal reflux disease) History of pyloric channel ulcer Iron deficiency anemia Gets iron infusions Past Family History Family History Mother No problems noted. Past Surgical History Surgical History H/O colonoscopy "09/16/14- normal" History of esophagogastroduodenoscopy (EGD) Hx laparoscopic cholecystectomy S/P D&C (status post dilation and curettage) S/P tubal ligation Social History Smoking Status: Never smoker Do You Dip or Chew Tobacco: No Hx Alcohol Use: No Alcohol type: wine alcohol intake frequency: holidays/special occasions only Hx Substance Use: No substance use type: does not use Testing Laboratory Results 08/27/20= WBC: 5.01 H/H: 8.0/24.7 (pt with heavy menstrual bleeding- reason for procedure; did inform surgeon's office of anemia- surgeon aware of Hgb- is ensuring patient is still taking Aygestin) PLATELETS: 205 SODIUM: 140 POTASSIUM: 4.4 CHLORIDE: 106 CO2: 23 BUN: 14 CREATININE: 0.9 GLUCOSE: 93 Electrocardiogram Date: 02/19/20 Findings: + NSR @ (82 bpm) Possible left atrial enlargement. When compared to EKG from December 07, 2018no significant changes found per cardio. Chest X-Ray Date: 12/07/19 Findings: + NAD 1 view CXR Loop recorder device noted. Stress Test Date: 11/12/14 Type: DSE Resting EF: 60-65% Resting LV Function: normal Resting RWMA: + none Valvular Disease: no significant valvular disease Nonischemic exercise stress echocardiogram. Normal baseline EKG. Stress EKG: No ST changes. No arrhythmias. MPHR 91%. 11.7 METS achieved. LV is normal in size. Mild concentric LVH.
[~2020-09-05 10:20] MED LIST changes: +ACETAMINOPHEN 1000 MG/100 ML IV IV ONE; -ATV/1 PO; +LACTATED RINGER'S 1,000 ML IV SCH; +LR 15ML/HR IV SCH; -METO-217 PO; -NXM/40 PO; -SERT-234 PO; +SODIUM CHLORIDE 0.9% 1000ML 1,000 ML IV SCH; +ceFAZolin 2000MG 2,000 MG/15 ML SYR IV SCH
[2020-09-05] MEDS ORDERED: PROPOFOL IV EMULSION 10 MG/ML 20 ML VIAL IV ONE (10:47)
[2020-09-05] MEDS ORDERED: ROCURONIUM BROMIDE 10 MG/ML 5 ML VIAL IV ONE ×2 (10:47→12:57)
[2020-09-05] MEDS ORDERED: MIDAZOLAM HCL 1 MG/ML 2ML VIAL ONE (10:47)
[2020-09-05] MEDS ORDERED: LIDOCAINE 2% 2 ML VIAL/AMP(20MG/ML) INFIL ONE (10:47)
[2020-09-05] MEDS ORDERED: fentaNYL citrate 100 MCG/2 ML VIAL ONE (10:47)
[2020-09-05] MEDS ORDERED: DEXAMETHASONE SOD INJ 4 MG/ML VIAL ONE (10:47)
[2020-09-05] MEDS ORDERED: ONDANSETRON INJ 2 MG/ML 2 ML VIAL ONE (10:47)
[2020-09-05 10:56] LABS: Basophils # (auto) 0.02 K/uL (0-0.2); Basophils % (auto) 0.4 %; Eosinophils # (auto) 0.06 K/uL (0-0.5); Eosinophils % (auto) 1.3 %; Hematocrit (blood only) 29.6 % (37-47); Hemoglobin 9.5 g/dL (12.0-16.0); Immature Granulocytes # (auto) 0.03 K/uL (0.00-0.02); Immature Granulocytes % (auto) 0.6 %; Lymphocytes # (auto) 1.37 K/uL (1.2-3.4); Lymphocytes % (auto) 29.1 %; Mean Corpuscular Hemoglobin 27.2 pg (25-34); Mean Corpuscular Volume 84.8 fL (80-100); Mean Platelet Volume 11.5 fL (7.4-10.4); Monocytes # (auto) 0.25 K/uL (0.11-0.59); Monocytes % (auto) 5.3 %; Neutrophils # (auto) 2.98 K/uL (1.4-6.5); Neutrophils % (auto) 63.3 %; Platelet Count 208 K/uL (130-400); RDW Coefficient of Variation 13.7 % (11.5-14.5); RDW Standard Deviation 41.9 fL (36.4-46.3); Red Blood Count 3.49 M/uL (4.2-5.4); White Blood Count 4.71 K/uL (4.8-10.8)
[2020-09-05] MEDS ORDERED: ePHEDrine sulfate 50 MG/ML AMP IV PRN (11:10)
[2020-09-05] MEDS ORDERED: ONDANSETRON INJ 2 MG/ML 2 ML VIAL IV PRN ×2 (11:10→14:26)
[2020-09-05] MEDS ORDERED: ATROPINE SULFATE 0.1 MG/ML 10ML SYR IV PRN (11:10)
[2020-09-05 11:15] LABS: Mean Corpuscular Hgb Conc 32.1 g/dL (32-36)
--- NOTE | 2020-09-05 11:22 | History & Physical Bridge Note ---
Date of Service September 05, 2020 History & Physical Bridge Note I have examined the patient, reviewed the History & Physical and in the interval since the performance of the History & Physical I have noted the following changes of clinical significance: no changes noted
[2020-09-05] MEDS ORDERED: SCOPOLAMINE 1 MG TDSY TD ONE (11:35)
[2020-09-05] MEDS ORDERED: BUPIVACAINE 0.5 % 5 MG/1 ML MPF 30ML VIAL ONE (11:51)
[2020-09-05] MEDS ORDERED: TISSEEL FIBRIN SEALANT 10ML TOP ONE (12:32)
[2020-09-05] MEDS ORDERED: FLOSEAL HEMOSTATIC MATRIX 5ML TOP ONE (13:53)
--- NOTE | 2020-09-05 14:24 | Post Operative Brief Note ---
Immediate Post Op Note v1 Date of Surgery September 05, 2020 Pre & Post Diagnosis Operation Date: 09/05/20 11:40 Pre-Op Diagnosis: Heavy Menstrual Bleeding Post-Op Diagnosis: Heavy Menstrual Bleeding I identified the patient and participated in the time-out.: Yes Procedure Operation Date: 09/05/20 11:40 Actual Procedures p Robotic Assisted Total Laparoscopic Hysterectomy, Bilateral Salphingectomy, Right Ovarian cystectomy and Cystoscopy(Not Applicable) - Candelaria Peterson Surgeon Candelaria Peterson Gis Engineer Sarah Barroso PA-C Estimated Blood Loss 20 Findings Consistent with Post-Op Diagnosis Drains Bernardo Catheter
--- NOTE | 2020-09-05 14:31 | Operative Report ---
Post Operative Report Pre & Post Diagnosis Operation Date: 09/05/20 11:40 Pre-Op Diagnosis: Heavy Menstrual Bleeding Post-Op Diagnosis: Heavy Menstrual Bleeding I identified the patient and participated in the time-out.: Yes Procedure Operation Date: 09/05/20 11:40 Actual Procedures p Robotic Assisted Total Laparoscopic Hysterectomy, Bilateral Salphingectomy, Right Ovarian cystectomy and Cystoscopy(Not Applicable) - Candelaria Peterson Surgeon Candelaria Peterson Splicer Machine Operator Sarah Barroso PA-C Estimated Blood Loss 20 Findings See Below 1. 7 cm retroverted uterus 2. Normal appearing fallopian tubes 3. Normal appearing left ovarian with a small simple appearing ovarian cyst 4. Normal appearing right ovarian with a simple appearing ovarian cyst approximately 4 cm 5. Anterior and posterior cul-de-sacs were free of disease or lesions 6. Normal appearing liver edge 7. Appendix not visualized 8. On cystoscopy, normal appearing bladder dome which was free of suture or lesions 9. Brisk bilateral efflux of urine by the ureteral orifices visualized Fluids See Anesthesia Report Specimens Uterus, cervix, bilateral fallopian tubes and right ovarian cyst Drains None. Doran catheter removed at the end of the procedure. Urine: 100 ml Anesthesia Type General Complications none Indications 45 yo with heavy menstrual bleeding desiring definitive surgical management via hysterectomy. Description of Procedure Under GA in the dorsal lithotomy position, the patient was prepped and draped in the usual sterile fashion. Beginning at the vagina, a doran catheter was inserted under sterile conditions and left in situ for the remainder of the case. A weighted speculum was then placed in the vagina and with the help of a right angle retractor the cervix was visualized and grasped anteriorly with a single tooth tenaculum.The uterus was sounded to7cm with a uterine sound.The cervical os was dilated up. An Advincula uterine manipulator was inserted. The weighted speculum was then removed. Attention was then turned to the abdomen. 0.5% marcaine solution was used for infiltration of all port sites. Beginning in the subumbilical area, the skin was first infiltrated with ~ 2 cc of themarcaine solution, then a8mm incision was made through the skin with a #11 blade. Direct entry with the robotic 8 mm trocar, sleeve, and 5 mm laparoscope was made into the peritoneal cavity.The opening pressure was <8 mmHg. The peritoneal cavity was insufflated with CO2 gas to a maximum pressure of 20 mmHg. Examination of the peritoneal cavity revealed no signs of injury from entry and the above notedanatomical structures. The patient was then placed in steep Trendelenburg and three [id number] robotictrocars were placed in a horizontal fashion.The entry level marketing assistant port was placed in the RLQ with a 5 mm trocar.All trocars placed instandard technique, taking care to avoid the epigastric vessels. All trocars were placed under direct visualization with no inadvertent damage to underlying structures. The uterus was upheld from below and revealed a normal uterus, fallopian tubes andovaries. The InSampleinci robot was docked. Beginning on the left side, the fallopian tube was lifted towards the anterior abdominal wall to expose the mesosalpinx. Working from distal to proximal, the mesosalpinx was sequentially, clamped, ligated, and cut using the monopolar stacy and bipolar forceps hugging adjacent to tube from distal to proximal in the direction of the cornua. Once the cornua was reached the tube was ligated and cut and left freely hanging from the uterus to be removed as one specimen. Following this, the utero-ovarian ligament was clamped, sealed, and cut. The ovarian pedicle was the inspected to ensure there was no bleeding from the edges of mesosalpinx or from the stump of the utero-ovarian ligament. Attention was then turned to the other side. The same process was repeated on the right, sequentially clamping, ligating, and cutting the mesosalpinx being sure to not injure the adjacent ovarian tissue or other surrounding structures. The round ligament was then ligated and cut. Following this, the anterior leaf of the broad ligament was then taken down on the right side, dissecting down towards the peritoneal reflection at the base of the bladder and adjacent to the cervix. The same process was then repeated on the left side such that both sides met and the anterior leaflet had been appropriately skeletonized. Care was taken on both sides to avoid injuring the ovaries and to ensure the ureters were well visualized bilaterally. Once the bladder was appropriately dissected free from the lower anterior uterine segment and the tissues skeletonized, the uterine arteries were bilatera lly clamped and ligated. Pedicles were checked and hemostatic. At the level of the ofthe uterine manipulator, the vaginal vault was incised circumferentially withthemonopolarshears. The uterus, cervix,and bilateralfallopian tubes weredelivered through the vagina and sent to pathology. Avaginal occluderwas then placed into the vagina to form a pneumatic seal and all the pedicles as well as the cuff edges were examined. Hemostasis was appreciated. The vaginal vault was then closed with a V-Loc barbed stitch being sure to avoid the bladder lateral pedicles. Following vault closure, an inspection of all areas was made to ensure hemostasis. The right ovarian cortex was then scored with the monopolar scissors which allowed visualization of the cyst. Traction counter-traction was used to removed the simple appearing cyst intact. An endo-catch bag was introduced into the peritoneal cavity and the right ovarian cyst was removed without incident. Tisseal was placed along the vaginal cuffand adnexal regions. Floseal was applied to the right ovary. Hemostasiswasagain appreciated. The robot was undocked.All ports were removed under direct visualization and hemostasis noted. All the incision sites were then closed with 4-0 monocryl sutures in a subcuticular fashion and dermabond. The vaginal occluder and doran catheter were removed without incident. Cystoscopy was then performed. Normal appearing bladder dome which was free of suture or lesions was visualized. There was brisk bilateral efflux of urine by the ureteral orifices visualized. The bladder was drained and the cystoscope was removed without difficulty. At the end of the procedure, all sponges, instruments, and sharps were counted and correct. Estimated blood loss was 20ml. The patient was taken to recovery in stable condition. My Splicer Machine Operator was necessary throughout the procedure for uterine manipulation, retraction, handling of the laparoscope and laparoscopic instruments to ensure adequate visualization, gentle tissue manipulation, and hemostasis. I attest to the content of the Intraoperative Record and any orders documented therein. Any exceptions are noted below.
[2020-09-05] MEDS: fentaNYL citrate 100 MCG/2 ML VIAL IV PRN ×4 (14:47→15:03)
--- NOTE | 2020-09-05 15:09 | Anesthesiology Progress Note ---
Date of Service September 05, 2020 Anesthesia Post Procedure Vital Signs Vital Signs: Temp Pulse Pulse Resp BP BP Pulse Ox 09/05/20 15:00 68 13 108/59 L 95 09/05/20 14:50 76 16 114/67 97 09/05/20 14:40 74 18 127/64 99 09/05/20 14:30 73 24 113/78 99 09/05/20 14:23 36.4 C L 90 12 121/65 92 09/05/20 10:48 36.5 C 85 18 123/75 96 Pain Intensity Lower Abdomen: Pain Intensity: 8 Abdomen: Pain Intensity: 6 Transfer of Care Handoff Completed per policy Notes Mental Status: alert / awake / arousable Patient Amnestic to Procedure: Yes Nausea / Vomiting: adequately controlled Pain: adequately controlled Airway Patency, RR, SpO2: stable & adequate BP & HR: stable & adequate Hydration State: stable & adequate Anesthetic Complications: no major complications apparent
[2020-09-05] MEDS ORDERED: oxyCODONE HCL IR 5 MG TAB (IMMEDIATE RELEASE) PO STA (15:47)
[2020-09-05] MEDS ORDERED: oxyCODONE HCL IR 5 MG TAB (IMMEDIATE RELEASE) ONE (15:52)
[2020-09-05] MEDS ORDERED: SIMETHICONE 80 MG CHEW PO STA (16:45)
[2020-09-05] MEDS ORDERED: oxyCODONE HCL IR 5 MG TAB (IMMEDIATE RELEASE) PO PRN (17:03)
[2020-09-05] MEDS ORDERED: DOCUSATE SODIUM 100 MG CAP PO ONE (17:03)
[2020-09-06] MEDS: IBUPROFEN 600 MG TAB PO PRN ×3 (00:12→13:16)
[2020-09-06] MEDS: SIMETHICONE 80 MG CHEW PO PRN ×3 (00:12→13:16)
[2020-09-06] MEDS: ACETAMINOPHEN 500 MG TAB PO PRN ×2 (02:15→11:02)
--- NOTE | 2020-09-06 07:36 | Obstetrical Progress Note ---
Date of Service September 06, 2020 Assessment & Plan Admission and Anticipated Discharge Date Admission Date: September 05, 2020 Subjective Postop day # 1 Patient is seen and examined Complains of gas pain, unable to pass gas Taking Motrin adn Tylenol for pain, does not wan to take Percoset. No CP/ SOB/ Dizziness/ N&V/ VB/ Leg pain OOB to BR and hallway many times Tolerating regular diet Flatus neg, BM neg Hungry, desires breakfast Vital Signs Temp Pulse Resp BP Pulse Ox 09/06/20 04:27 36.9 C 88 18 106/72 93 09/06/20 00:17 36.7 C 94 H 20 106/67 94 Lab Results 09/05/20 09/05/20 09/05/20 Range/Units 10:35 10:38 10:38 WBC 4.71 L (4.8-10.8) K/uL RBC 3.49 L (4.2-5.4) M/uL Hgb 9.5 L (12.0-16.0) g/dL Hct 29.6 L (37-47) % MCV 84.8 (80-100) fL MCH 27.2 (25-34) pg MCHC 32.1 (32-36) g/dL RDW Std Deviation 41.9 (36.4-46.3) fL RDW Coeff of Pina 13.7 (11.5-14.5) % Plt Count 208 (130-400) K/uL MPV 11.5 H (7.4-10.4) fL Immature Gran % (Auto) 0.6 % Neut % (Auto) 63.3 % Lymph % (Auto) 29.1 % [place] % (Auto) 5.3 % Eos % (Auto) 1.3 % Baso % (Auto) 0.4 % Neut # (Auto) 2.98 (1.4-6.5) K/uL Lymph # (Auto) 1.37 (1.2-3.4) K/uL [place] # (Auto) 0.25 (0.11-0.59) K/uL Eos # (Auto) 0.06 (0-0.5) K/uL Baso # (Auto) 0.02 (0-0.2) K/uL Immature Gran # (Auto) 0.03 H (0.00-0.02) K/uL POC Ur Test NEG (NEG) Blood Type A Positive Antibody Screen NEGATIVE PE: General: Alert, orientedx3, NAD CVS: S1S2 RRR Lungs: CTAB Abd: soft, tender, ND, BS+, Incisions C/D/I No VB Ext: NT, no edema/ erythema AP: 45 yo female s/p TLH , pod#1 VSS Afebrile doing well H&H stable Gas pain, encourage PO intake and ambulation Continue to routine postop care Anticipate DC today when she passes gas and feels better Results & Data ([facility]) Vital Signs (Past 12 Hours) Vital Signs Temp Pulse Resp BP Pulse Ox 09/06/20 04:27 36.9 C 88 18 106/72 93 09/06/20 00:17 36.7 C 94 H 20 106/67 94
[2020-09-06 08:57] VITALS: TEMP 97.9
[2020-09-06] MEDS ORDERED: DOCUSATE SODIUM 100 MG CAP PO ONE (12:27)
--- NOTE | 2020-09-06 13:17 | Gynecologic Progress Note ---
Date of Service September 06, 2020 Assessment & Plan Admission and Anticipated Discharge Date Admission Date: September 05, 2020 Subjective feels better POD#1 passing gas tolerating diet Physical Exam Constitutional: WD/WN, vitals as above comfortable Skin: no rashes, warm and dry Psychiatric: A+Ox3, euthymic affect Genitourinary: no suprapubic pain abdomen is soft and non-tender incisions are c/d/i for d/c home Results & Data ([facility]) Vital Signs (Past 12 Hours) Vital Signs Temp Pulse Resp BP Pulse Ox 09/06/20 07:30 36.6 C 77 20 110/69 95 09/06/20 04:27 36.9 C 88 18 106/72 93 Laboratory Results 09/05/20 09/05/20 09/05/20 10:35 10:38 10:38 WBC 4.71 L RBC 3.49 L Hgb 9.5 L Hct 29.6 L MCV 84.8 MCH 27.2 MCHC 32.1 RDW Std Deviation 41.9 RDW Coeff of Pina 13.7 Plt Count 208 MPV 11.5 H Immature Gran % (Auto) 0.6 Neut % (Auto) 63.3 Lymph % (Auto) 29.1 [place] % (Auto) 5.3 Eos % (Auto) 1.3 Baso % (Auto) 0.4 Neut # (Auto) 2.98 Lymph # (Auto) 1.37 [place] # (Auto) 0.25 Eos # (Auto) 0.06 Baso # (Auto) 0.02 Immature Gran # (Auto) 0.03 H POC Ur Test NEG Blood Type A Positive Antibody Screen NEGATIVE
[2020-09-06 13:34] VITALS: BP 117/73; PULSE 83; O2SAT 97
--- NOTE | 2020-09-12 06:50 | Discharge Summary ---
Date of Service September 12, 2020 Admission HPI Per Admitting Provider 45 year [id number] with unknown LMPusing BTL for contraception presentswith heavy menstrual bleeding. Menses twice per month, lasting 10 days with light and heavy bleeding. On heavy days, Patient using both tampons and pads and changing every 30 minutes to an hour. Endometrial biopsy attempted in Feb 2020, but Provider was unable to pass the internal cervical os. The procedure was aborted secondary to pain. Patient had a normal pap smear at that time. Patient also has ongoing pelvic pain for years and had a TVUSin May 2020. Results revealed thickened heterogeneous endometrial stripe, 19-21 mm. Cystic focus within the endometrial cavity. As long as the patient is not , differential includes endometrial hyperplasia, endometrial carcinoma, or less likely intracavitary fibroid or polyp. Histologic sampling suggested as long as the patient is not . No change in right ovarian 43 x 45 x 39 mm anechoic simple cystic structure, benign etiology favored. Left ovarian physiologic cyst. Similar appearing posterior uterine fibroid. S/p D&C hysteroscopy and polypectomy on 07/24/2020 (disordered proliferative endometrium and a benign endometrial polyp). Post-operatively, Patient complained of vaginal bleeding changing pad every 2 hours. Patient had a repeat TVUS on 08/07/2020. Results revealed1. Thickened heterogeneous endometrium with internal vascularity, a nonspecific finding in this patient with recent postoperative state.2. Heterogeneous myometrium. 3. Bilateral ovarian cysts.Patient was prescribed aygestin by Dr. Soto and bleeding discontinued. Patient completed medication and bleeding has returned. Patient was given an additional prescription for aygestin. Patient desires definitive surgical management via hysterectomy. Admission Exam (Per Admitting) Respiratory normal respiratory effort, lungs clear to auscultation Cardiovascular RRR, no murmur, no edema Gastrointestinal (Abdomen) normal bowel sounds, soft, nontender, no hepatosplenomegaly Discharge Data Procedures Performed Operation Date: 09/05/20 11:40 Actual Procedures p Robotic Assisted Total Laparoscopic Hysterectomy, Bilateral Salphingectomy, Right Ovarian cystectomy(Not Applicable) - Candelaria Peterson s Cystoscopy(Not Applicable) - Candelaria Peterson Hospital Course (1) S/P laparoscopic hysterectomy: s/p RA TLH/BS/Right Ovarian Cystectomy/Cystoscopy. Uncomplicated surgery. Patient with a 23 overnight stay. Discharge home on POD#1. Patient will be discharged home with instructions. Post-op medications previously prescribed. . Discharge Instructions POST OPERATIVE: BOWEL FUNCTION/MEDICATIONS: 1. Constipation pain and discomfort are the most common complaints 5-7 days after surgery. Points 2-6 address the things that can help. 2. Chewing gum can help stimulate the gut and help improve digestion and motility. 3. Milk of Magnesia 1-2 times per day until return of bowel function. 4. Colace is a stool softener that helps. Taking this 2-3 times per day until bowel function returns to normal is highly recommended. 5. Dulcolax is a laxative that may be used if several days have passed without a bowel movement. Alternatively Miralax may be used daily instead. 6. Drink plenty of fluids as this will also reduce constipation. 7. Narcotic pain medications will be prescribed by your physician. They are safe to use and we encourage you to use them. If you are not allergic, ibuprofen will also be prescribed. Many patients will be able to transition off of the narcotic medications to ibuprofen by postoperative day 3. ACTIVITY RECOMMENDATIONS: 1. Get plenty of rest and listen to your body. If you are tired, take a nap. 2. You may shower, but do not take a tub bath until you see your doctor at the 2 week post operative visit. 3. Absolutely NO intercourse and nothing in the vagina until you are examined by your doctor. At that visit it will be determined when such activities can be resumed. This can range from 6-12 weeks after your surgery depending on healing time. 4. The main physical activity in the first week should be walking. By the second week you can slowly increase activity. There are no limits on walking up and down stairs. 5. Do not lift more than 5-10 lbs for 4 weeks. Remember the "one-handed rule", i.e. if you can lift something with only one hand it's likely okay. 6. Minimize belt brander like vacuuming and exercising for 4 weeks. "Overdoing it" can lead to incisions not healing, pain and vaginal bleeding, so again, listen to your body. 7. Driving can be resumed when you feel able. Do not drive within 24 hours of taking a narcotic medication. EXPECTATIONS: 1. Vaginal spotting, bleeding and discharge are common after surgery. There may even be an odor to the discharge which is often related to sutures used in the vagina. If you experience heavy vaginal bleeding, call the office number day or night [phone]. 2. Bladder discomfort is common after surgery from the catheter. This usually resolves in 1-2 weeks. 3. By the end of the 3rd or 4th week you should be feeling much better. It may take up to 6 weeks for your energy levels to return to normal. 4. Narcotic medications have side effects such as: dizziness, headache, nausea and/or vomiting. If you suspect your pain medication is causing problems, call our office and we may be able to prescribe an alternate medication. 5. The skin incisions are often covered with a liquid bandage. This will gradually peel off over time. CALL THE OFFICE IF YOU HAVE ANY OF THE FOLLOWIN. Temperature of 101 degrees or higher. 2. Severe abdominal or pelvic pain not relieved by pain medication. 3. Persistent nausea or vomiting. 4. Increased pain with urination or difficulty urinating. 5. Bright red bleeding that soaks more than 1 pad per hour. CONTACT PHONE NUMBERS: Main Office: [phone] Avoid all tobacco products. If you need help to stop smoking, call [place]'s FREE QUITLINE at . This is a free call.
== END 2020-09-06 14:30 | disposition home or self-care (01) ==
LOC: ASU 10:20 → 4S2 17:00 → INTOOBSV 17:00
DX: N83.201 Unspecified ovarian cyst, right side; Z20.822 Contact with and (suspected) exposure to COVID-19; Z88.8 Allergy status to other drugs, medicaments and biological substances; N92.1 Excessive and frequent menstruation with irregular cycle; K21.9 Gastro-esophageal reflux disease without esophagitis; Z79.899 Other long term (current) drug therapy; I49.9 Cardiac arrhythmia, unspecified; D50.9 Iron deficiency anemia, unspecified; Z91.013 Allergy to seafood; Z88.5 Allergy status to narcotic agent